=== PATIENT | male | born 1950 | race African-American/Black ===

== ENCOUNTER 2020-04-27 13:36 | Inpatient (IN) | payer MEDICARE, MEDICAID ==
--- NOTE | 2020-04-27 14:04 | ED ---
General Adult HPI - General Chief complaint: Extremity Problem,Nontraumatic Stated complaint: Leg pain Time Seen by Provider: 04/27/20 13:49 Source: patient Mode of arrival: ambulatory Limitations: no limitations - History of Present Illness Initial comments: Dictation was produced using fitaborate dictation software. please excuse any grammatical, word or spelling errors. This patient was cared for during a federal and state declared state of formerly [facility] secondary to Covid 19 Chief Complaint: 69-year-old male presents today with bilateral lower extremity pain. History of Present Illness: 69-year-old male presents today with several days of bilateral lower extremity pain. Patient states that it feels warm and causing a burning-like sensation. Patient states that his symptoms progressively R worsening. He states he noted some blisters located to the right lateral portion of his lower extremities. Patient denies any history of lower extremity cellulitis. No fever, chills or night sweats. Patient states he recently had dental work. The patient has a shortness of breath. Denies any cardiac disease. Patient denies any numbness and paresthesias to his leg. Does state that his lower legs bilaterally hurt. States his right leg appears to be worse in the left. He does note swelling. The ROS documented in this emergency department record has been reviewed and confirmed by me. Those systems with pertinent positive or negative responses have been documented in the HPI. All other systems are other negative and/or noncontributory. PHYSICAL EXAM: General Impression: Alert and oriented x3, not in acute distress HEENT: Normocephalic atraumatic, extra-ocular movements intact, pupils equal and reactive to light bilaterally, mucous membranes moist. Cardiovascular: Heart regular rate and rhythm Chest: Able to complete full sentences, no retractions, no tachypnea Abdomen: abdomen soft, non-tender, non-distended, no organomegaly Musculoskeletal: Pulses present and equal in all extremities, 4+ pitting edema bilaterally Motor: no focal deficits noted Neurological: CN II-XII grossly intact, no focal motor or sensory deficits noted Skin: Patient has ruptured blisters to the right lateral portion of the right lo wer leg, leg does not appear to be warm to touch however doesn't list pain with palpation Psych: Normal affect and mood ED course: 69-year-old male presents with several days of bilateral lower extre mities symptoms. Vital signs upon arrival are within acceptable limits. EKG interpretation: Ventricular rate 69, normal sinus rhythm,. 156, QRS 88, QTC 420. No GA prolongation, no QTC prolongation, no ST or T-wave changes noted. No EKG for comparison Overall, this EKG is nonspecific Laboratory evaluation obtained. CBC unremarkable. Metabolic panel is negative. Brain natruretic peptide is negative. Tibia-fibula x-ray shows soft tissue swelling. Venous Doppler study is unremarkable. Patient was reevaluated bedside at 4 PM. Patient started making very paranoid comments saying that he wanted to call the police and have them involved because he had dental work and doesn't want to be programmed. Clinical presentation consistent concerning for acute psychiatric illness. Patient medically cleared for EPS evaluation. Laboratory evaluation obtained. CBC unremarkable. Metabolic panel is negative. Clinical presentation is unclear however there does seem to be features concerning for lower extremity cellulitis. Patient given dose of Keflex. His legs were wrapped with Last wrap. This is likely lymphedema. Patient is instructed by EPS and recommended inpatient admission. Certification was completed. - Related Data Home Medications Medication Instructions Recorded Confirmed No Known Home Medications 04/27/20 04/27/20 Allergies Allergy/AdvReac Type Severity Reaction Status Date / Time No Known Allergies Allergy Verified 04/27/20 16:29 Review of Systems ROS Statement: Those systems with pertinent positive or pertinent negative responses have been documented in the HPI. ROS Other: All systems not noted in ROS Statement are negative. Past Medical History Past Medical History: Hyperlipidemia, Hypertension History of Any Multi-Drug Resistant Organisms: None Reported Past Surgical History: No Surgical Hx Reported Past Psychological History: No Psychological Hx Reported Smoking Status: Current every day smoker Past Alcohol Use History: Occasional Past Drug Use History: Marijuana General Exam Limitations: no limitations Course Vital Signs 04/27/20 13:38 Temperature 97.9 F Pulse Rate 77 Respiratory 20 Rate Blood Pressure 187/94 O2 Sat by Pulse 100 Oximetry Medical Decision Making - Lab Data Result diagrams: 04/27/20 14:28 04/27/20 14:28 Lab Results 04/27/20 04/27/20 04/27/20 Range/Units 14:28 14:28 14:28 WBC 5.9 (3.8-10.6) k/uL RBC 4.62 (4.30-5.90) m/uL Hgb 14.1 (13.0-17.5) gm/dL Hct 42.3 (39.0-53.0) % MCV 91.7 (80.0-100.0) fL MCH 30.5 (25.0-35.0) pg MCHC 33.3 (31.0-37.0) g/dL RDW 13.7 (11.5-15.5) % Plt Count 261 (150-450) k/uL MPV 7.7 Neutrophils % 60 % Lymphocytes % 29 % Monocytes % 5 % Eosinophils % 3 % Basophils % 1 % Neutrophils # 3.5 (1.3-7.7) k/uL Lymphocytes # 1.7 (1.0-4.8) k/uL Monocytes # 0.3 (0-1.0) k/uL Eosinophils # 0.2 (0-0.7) k/uL Basophils # 0.1 (0-0.2) k/uL Sodium 136 L (137-145) mmol/L Potassium 4.6 (3.5-5.1) mmol/L Chloride 105 (98-107) mmol/L Carbon Dioxide 24 (22-30) mmol/L Anion Gap 7 mmol/L BUN 23 H (9-20) mg/dL Creatinine 0.78 (0.66-1.25) mg/dL Est GFR (CKD-EPI)AfAm >90 (>60 ml/min/1.73 sqM) Est GFR (CKD-EPI)NonAf >90 (>60 ml/min/1.73 sqM) Glucose 133 H (74-99) mg/dL Calcium 9.1 (8.4-10.2) mg/dL Troponin I <0.012 (0.000-0.034) ng/mL NT-Pro-B Natriuret Pep pg/mL 04/27/20 Range/Units 14:28 WBC (3.8-10.6) k/uL RBC (4.30-5.90) m/uL Hgb (13.0-17.5) gm/dL Hct (39.0-53.0) % MCV (80.0-100.0) fL MCH (25.0-35.0) pg MCHC (31.0-37.0) g/dL RDW (11.5-15.5) % Plt Count (150-450) k/uL MPV Neutrophils % % Lymphocytes % % Monocytes % % Eosinophils % % Basophils % % Neutrophils # (1.3-7.7) k/uL Lymphocytes # (1.0-4.8) k/uL Monocytes # (0-1.0) k/uL Eosinophils # (0-0.7) k/uL Basophils # (0-0.2) k/uL Sodium (137-145) mmol/L Potassium (3.5-5.1) mmol/L Chloride (98-107) mmol/L Carbon Dioxide (22-30) mmol/L Anion Gap mmol/L BUN (9-20) mg/dL Creatinine (0.66-1.25) mg/dL Est GFR (CKD-EPI)AfAm (>60 ml/min/1.73 sqM) Est GFR (CKD-EPI)NonAf (>60 ml/min/1.73 sqM) Glucose (74-99) mg/dL Calcium (8.4-10.2) mg/dL Troponin I (0.000-0.034) ng/mL NT-Pro-B Natriuret Pep 167 pg/mL Disposition Clinical Impression: Paranoia, Swelling of both lower extremities Disposition: ADMITTED IP TO THIS [facility] Condition: Fair Referrals: None,Stated [Primary Care Provider] - 1-2 days Decision Time: 20:18
[2020-04-27 14:43] LABS: Basophils # (A) 0.1 k/uL (0-0.2); Basophils % (A) 1 %; Eosinophils # (A) 0.2 k/uL (0-0.7); Eosinophils % (A) 3 %; HCT 42.3 % (39.0-53.0); HGB 14.1 gm/dL (13.0-17.5); Lymphocytes # (A) 1.7 k/uL (1.0-4.8); Lymphocytes % (A) 29 %; MCH 30.5 pg (25.0-35.0); MCHC 33.3 g/dL (31.0-37.0); MCV 91.7 fL (80.0-100.0); Mean Platelet Volume 7.7; Monocytes # (A) 0.3 k/uL (0-1.0); Monocytes % (A) 5 %; Neutrophils # (A) 3.5 k/uL (1.3-7.7); Neutrophils % (A) 60 %; Platelet Count 261 k/uL (150-450); RBC 4.62 m/uL (4.30-5.90); RDW 13.7 % (11.5-15.5); WBC 5.9 k/uL (3.8-10.6)
[2020-04-27 14:54] LABS: African American GFR (CKD) >90 (>60 ml/min/1.73 sqM); Anion Gap 7 mmol/L; Blood Urea Nitrogen 23 mg/dL (9-20); Calcium 9.1 mg/dL (8.4-10.2); Carbon Dioxide 24 mmol/L (22-30); Chloride 105 mmol/L (98-107); Glucose 133 mg/dL (74-99); Non-African American GFR(CKD) >90 (>60 ml/min/1.73 sqM); Sodium 136 mmol/L (137-145)
[2020-04-27 14:56] LABS: Potassium 4.6 mmol/L (3.5-5.1)
--- NOTE | 2020-04-27 15:10 | XR ---
EXAMINATION TYPE: XR tibia fibula bilateral DATE OF EXAM: 04/27/2020 COMPARISON: NONE HISTORY: Leg swelling TECHNIQUE: 8 views FINDINGS: There is some deformity of the posterior malleolus of the right ankle consistent with an ol d injury. I see no acute fracture nor dislocation. There is soft tissue swelling around both lower le gs. There is some deformity of the right calcaneus that could relate to an old fracture. The knee dayron nts appear intact. IMPRESSION: Soft tissue swelling. No fracture seen.
--- NOTE | 2020-04-27 15:49 | US ---
EXAMINATION TYPE: US venous doppler duplex LE BI DATE OF EXAM: 04/27/2020 3:28 PM COMPARISON: NONE CLINICAL HISTORY: bilateral leg swelling. Bilateral leg swelling/ no known prior DVT SIDE PERFORMED: Bilateral TECHNIQUE: The lower extremity deep venous system is examined utilizing real time linear array sonog ronald with graded compression, doppler sonography and color-flow sonography. VESSELS IMAGED: Common Femoral Vein Deep Femoral Vein Greater Saphenous Vein * Femoral Vein Popliteal Vein Small Saphenous Vein * Proximal Calf Veins (* superficial vessels) Right Leg: Negative for DVT Left Leg: Negative for DVT IMPRESSION: No evidence of deep vein thrombosis in the legs.
[2020-04-27] MEDS ORDERED: CEPHALEXIN 500 MG CAP PO STA (16:16)
[2020-04-27] MEDS ORDERED: METOPROLOL TARTRATE 25 MG TAB PO STA (20:57)
[2020-04-28] MEDS ORDERED: LORazepam 1 MG TAB PO PRN (00:36)
[2020-04-28] MEDS ORDERED: ACETAMINOPHEN TAB 325 MG TAB PO PRN (00:36)
[2020-04-28] MEDS ORDERED: MAG HYDROX/AL HYDROX/SIMETH 30 ML CUP PO PRN (00:36)
[2020-04-28] MEDS ORDERED: HALOPERIDOL LACTATE 5 MG/ML 1 ML VIAL IM PRN (00:42)
[2020-04-28] MEDS ORDERED: LORazepam 2 MG/ML INJ IM PRN (00:46)
[2020-04-28] MEDS ORDERED: MAGNESIUM HYDROXIDE 2,400 MG/10 ML CUP PO PRN (02:00)
[2020-04-28] MEDS ORDERED: HEPARIN SODIUM,PORCINE 5,000 UNIT/ML 1 ML VIAL SQ SCH (02:00)
--- NOTE | 2020-04-28 02:00 | P.MDCNMH ---
History of Present Illness H&P Date: 04/28/20 Chief Complaint: bilateral leg edema, hypertension 69 year old male with hypertension patient comes in for evaluation of bilateral leg swelling, and right leg blistering he is not clear about how long has this been going on, he kept telling me how the FBI did some dental work trying to program something in him that he is refusing to get, and that police is after him now. he is really not clear with what he is saying , and when I ask for clarification, he requested to be left alone to rest. then he told me about something unique regarding his chest, and that has to do with the community, but he is not ashamed. again when i asked for clarification , he got upset. and asked to be left alone. 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 in the ED, cellulitis was suspected, otherwise venous doppler US did not show any acute DVT in bilateral legs. Review of Systems ROS unobtainable: due to mental status Past Medical History Past Medical History: Hyperlipidemia, Hypertension History of Any Multi-Drug Resistant Organisms: None Reported Past Surgical History: No Surgical Hx Reported Past Psychological History: No Psychological Hx Reported Smoking Status: Current every day smoker Past Alcohol Use History: Occasional Past Drug Use History: Marijuana - Past Family History family Family Medical History: Unable to Obtain Medications and Allergies Home Medications Medication Instructions Recorded Confirmed Type No Known Home Medications 04/27/20 04/27/20 History Allergies Allergy/AdvReac Type Severity Reaction Status Date / Time No Known Allergies Allergy Verified 04/27/20 16:29 Physical Exam Vitals: Vital Signs Temp Pulse Resp BP Pulse Ox 04/27/20 22:20 155/73 04/27/20 22:00 163/82 04/27/20 21:59 168/78 04/27/20 20:55 198/101 04/27/20 13:38 97.9 F 77 20 187/94 100 Intake and Output 04/27/20 04/27/20 04/28/20 14:59 22:59 06:59 Other: Weight 90.718 kg limited exam , patient did not cooperate Constitutional: No acute distress Eyes: Anicteric sclerae,bloodshot eyes Pupils equal round reactive to light ENMT: NC/AT Neck: deferred Lungs: Clear to auscultation Clear to percussion Normal respiratory effort, no accessory muscle use Cardiovascular: Heart regular in rate and rhythm, No murmurs, gallops, or rubs bilateral leg edema Abdominal: deferred Skin: Normal temperature, tone, texture, turgor No induration No subcutaneous nodules Extremities: No digital cyanosis No clubbing Pedal pulses intact and symmetrical Radial pulses intact and symmetrical right leg, swelling non pitting, tender to palpation , warm to the touch , with open blisters Psychiatric: Alert and oriented to person, place and time paranoid Neuro Muscles Strength 5/5 in all 4 extremities Sensation to light touch grossly present throughout Cranial nerves II-XII grossly intact No focal sensory deficits Lymphatics: no palpable cervical or supraclavicular , or inguinal lymph nodes Cranial Nerve Examination - Cranial Nerves Cranial Nerve II- Optic: Intact Cranial Nerve III- Oculomotor: Intact Cranial Nerve IV- Trochlear: Intact Cranial Nerve V- Trigeminal: Intact Cranial Nerve - Abducens: Intact Cranial Nerve VII- Facial: Intact Cranial Nerve VIII- Auditory: Intact Cranial Nerve IX- Glossopharyngeal: Intact Cranial Nerve X- Vagus: Intact Cranial Nerve XI- Accessory: Intact Cranial Nerve XII- Hypoglossal: Intact Results CBC & Chem 7: 04/27/20 14:28 04/27/20 14:28 Labs: Abnormal Lab Results - Last 24 Hours (Table) 04/27/20 Range/Units 14:28 Sodium 136 L (137-145) mmol/L BUN 23 H (9-20) mg/dL Glucose 133 H (74-99) mg/dL Assessment and Plan Assessment: cellulitis hypertensive urgency bloodshot eyes bactrim DS bid for 7 days venous doppler us of the legs did not show any acute DVT xray of the right leg showed no acute fractures start norvasc and HCTZ clonidine PRN for systolic above 180 compression stocking dvt PPx heparin sc tid paranoid delusions management per psych labs reviewed Thank you for allowing us to participate in the care of this patient. We will follow peripherally. Do not hesitate to contact us with questions. Someone can be reached from the [facility] [place] 2[place] hospitalist group at all hours of the day at [phone].
[2020-04-28] MEDS ORDERED: ARTIFICIAL TEARS-HYPROMELLOSE DROPS 15 ML BTL BOTH EYES PRN (03:00)
[2020-04-28] MEDS: SULFAMETHOX-TMP 800-160MG 1 EACH TAB PO SCH ×3 (08:25→20:44)
[2020-04-28] MEDS: amLODIPine 5 MG TAB PO SCH (08:26)
[2020-04-28] MEDS: NICOTINE 14MG/24HR PATCH TRANSDERM SCH (08:26)
[2020-04-28] MEDS: hydroCHLOROthiazide 25 MG TAB PO SCH (08:26)
[2020-04-28] MEDS ORDERED: cloNIDine HCL 0.2 MG TAB PO PRN (09:00)
--- NOTE | 2020-04-28 11:15 | HP ---
DATE OF SERVICE: 04/28/2020 HISTORY AND PHYSICAL IDENTIFYING DATA: The patient is a 69-year-old male. He lives in a house in the community that apparently is under reconstruction. He presented to the ED for evaluation. CHIEF COMPLAINT: The patient had physical complaints, some of which he related to "micro programming." He was disorganized and expressed delusional thoughts. HISTORY OF PRESENTING ILLNESS: The patient was the sole source of information for the history, it was very difficult to get a clear history from the patient. He said that he was having leg swelling and that his right leg broke out into some kind of blister. He said then his body got very hot. He also related to some of physical symptoms to having some recent dental work done. He made comments that he believed much of this was related to "micro programming." He did not describe what he thought that meant though suggested that he believes people are out to get him. Again, he did not provide any details. He mentioned that recently he had seen a doctor who he said "played with me and my family." Throughout the interview he made references to things about "technology", though it was not clear what his references were. He described that he had been out of the area and had gone down to the [facility] apparently to visit a family member. He said he lived for some period of time in a skilled nursing there. He stated that he was in [facility] much of his adult life for murder. He gave a description of some situation where he was feeling threatened in the midst of a social situation. He said he left snf 4 years ago and has been on parole. He said he just got off parole November 14, 2019. He notes that currently he stated he has been living at [address] [place] [address] in [place]. He said people are doing re-working of the house and he is living there to watch over the house. He says he has keys to the house. It is noteworthy that looking at [employer] maps, there is a picture of the house. In the picture it does appear that there are some windows boarded up and the house may be under some reconstruction. Also in the picture are two people on a porch that do appear to be worker's. In the front yard there is a bench and it appears in fact that the patient may be sitting on that bench. When I asked the patient who the power press tender was and whether we could get in touch with the power press tender, he was somewhat resistant to that idea. He then made a comment that he had made some efforts to contact two different housing authorities and was hopeful that during this hospitalization he could get assistance with housing. The patient states that he has not had a prior psychiatric hospitalization. He is not on any psychotropic medications. He made some reference to the fact that he was never on any psychiatric medications during his time in sn[place], though at some point after he got out there was a suggestion of his getting on medications, which he said he declined. He said, "I never needed medications in snf, so why would I need them now." The patient states that he has been drinking some "hemp protein" drink, though did not provide any more details. He states that he drinks a small amount of alcohol and apparently will buy single shot drinks from grocery stores. He tended to minimize how much of that he actually uses. He did not identify any other abusive substances. He is admitted for further evaluation. SUBSTANCE USE HISTORY: As above. PAST MEDICAL HISTORY: Patient reported no significant or chronic general health complaints. He did not indicate he is taking any prescribed medications. It is noteworthy that he has been running a high systolic blood pressure with his pressure this morning being 145/81 at 8:28 a.m. FAMILY AND SOCIAL HISTORY: The patient states that he is disconnected from family. I encouraged the patient to have us make an effort to contact some family member who might know him, though he was very reluctant to consider that. He suggested that all of his family are against him. He made comments about having done some college courses, though it was not clear what the specifics of that were. To some extent it seemed to relate to the idea of "technology." MENTAL STATUS EXAM: Patient sat with some restlessness. He gave fair eye contact. He answered questions with brief responses. More often than not he tended to ramble in a somewhat tangential manner. He talked about a range of issues. At times it was difficult to follow his train of thought. His affect was a little constricted though he smiled on and off through the interview and had a friendly manner. His mood was reserved though not clearly down or depressed. He did not appear to be significantly distressed. He appears to have paranoid delusions talking about being "micro programmed." He voiced no thoughts of harm to self or others. He did not make an effort to answer formal cognitive questions. He gave some specific information that was consistent with what was documented in the medical record. He appeared to be oriented and alert. PHYSICAL EXAM: As per medical consultation. ASSESSMENT: This is a 69-year-old male who was diagnosed with psychosis. It is very uncertain whatever the patient's past history is, whether or not we will be able to get any documentation or corroborative information remains to be seen. The patient is expressing some fairly clear delusional thoughts about getting programmed. His living circumstances are questionable, though he seemed to accurately describe the house where he lives and where he has possessions. STRENGTHS: Include that he appears to be managing basic life issues adequately. WEAKNESSES: Includes thought disorder. DIAGNOSES: 1. Psychosis. 2. Hypertension. RECOMMENDATIONS: Patient will be admitted for comprehensive medical psychiatric and psychosocial evaluation. We will engage the patient in individual and group therapeutic activities. I will start the patient on Zyprexa 15 mg at bedtime. I briefly reviewed medication issues with the patient. He did not seem to be too engaged in that conversation, so I kept it limited. The patient was quite interested in the idea of our working with him on housing. We will focus on stabilization and discharge planning. KENDRICK / MAXIMEN: [id number] / JAKI
[2020-04-28] MEDS: BACITRACIN OINT 1 EACH PACKET TOPICAL SCH (19:07)
[2020-04-28] MEDS: OLANZapine 5 MG TAB PO SCH (20:44)
[2020-04-28] MEDS: RIVAROXABAN 10 MG TAB PO SCH (20:45)
[2020-04-29 07:39] LABS: Basophils % (A) 1 %; Eosinophils # (A) 0.2 k/uL (0-0.7); Eosinophils % (A) 4 %; HCT 43.3 % (39.0-53.0); HGB 14.3 gm/dL (13.0-17.5); Lymphocytes % (A) 40 %; MCH 30.5 pg (25.0-35.0); MCV 92.4 fL (80.0-100.0); Mean Platelet Volume 7.7; Monocytes # (A) 0.3 k/uL (0-1.0); Monocytes % (A) 6 %; Neutrophils # (A) 2.3 k/uL (1.3-7.7); Neutrophils % (A) 46 %; Platelet Count 291 k/uL (150-450); RBC 4.69 m/uL (4.30-5.90); RDW 13.5 % (11.5-15.5)
[2020-04-29 07:57] LABS: Albumin 3.6 g/dL (3.5-5.0); Calcium 9.7 mg/dL (8.4-10.2); Potassium 4.6 mmol/L (3.5-5.1); Total Bilirubin 0.7 mg/dL (0.2-1.3); Total Protein 6.9 g/dL (6.3-8.2)
[2020-04-29] MEDS: hydroCHLOROthiazide 25 MG TAB PO SCH (08:31)
[2020-04-29] MEDS: amLODIPine 5 MG TAB PO SCH (08:31)
[2020-04-29] MEDS: BACITRACIN OINT 1 EACH PACKET TOPICAL SCH (08:31)
[2020-04-29] MEDS: SULFAMETHOX-TMP 800-160MG 1 EACH TAB PO SCH ×2 (08:31→20:42)
[2020-04-29] MEDS: NICOTINE 14MG/24HR PATCH TRANSDERM SCH (08:32)
[2020-04-29] MEDS: RIVAROXABAN 10 MG TAB PO SCH (08:32)
--- NOTE | 2020-04-29 13:46 | P.PN ---
Progress Note - Text Progress Note Date: 04/29/20 Clinical Problems: Unspecified psychotic disorder, cellulitis, hypertension Interim history: I reviewed the medical record, interviewed the patient and discuss his treatment and treatment plan during team meeting. He is a 69-year-old -[place] male admitted to the psychiatric unit involuntarily with a history of disorganized thinking and delusional thoughts. Apparently, he presented to the ED with complaints of bilateral lower extremity pain. During the medical evaluation he appeared paranoid and talked about calling the police to have them involved because he had dental work and "doesn't want to be programmed." He told the EPS nurse and is concerned about micor and macro pro gramming. He thinks that people can use this program to manipulate people when they had this science of understanding. He told the EPS nurse that he wants to give a tooth to the FBI for samples. He alleged that he was admitted to this psychiatric unit "many years ago" and was prescribed psychotropic medications when he was in jail I had difficulty getting a coherent history as she jumped from topic to topic. He talked about dental procedures and dental issues, leg pain, leg swelling and ulcers on legs. He perseverated about his long jail sentence and how he paid his debt to society. He did not talk about programming, mind control, thought broadcasting, or thought insertion. He denied experiencing auditory and visual or olfactory hallucinations. Gave conflicting information about his substance use history and talked about resisting smoking marijuana and resisting using alcohol. He has not provided a urine sample for UDS. His BAT in the ER was 0. Medical consultation appreciated. Mental status exam: He presented as a casually groomed elderly -[place] male who was pleasant on approach. He made eye contact and appeared to attend to interview. He had psychomotor slowing and a short based slow gait. He had bilateral 2+ pitting edema as well as multiple lesions in various stages of healing. His speech was spontaneous with slightly dysarthric but normal volume. His affect was anxious but appropriate. He denied suicidal ideation, wishes or homicidal ideation. He expresses feelings of helplessness regarding his medical problems and his difficulty with obtaining proper medical care. He ruminated about his past legal problems and difficulties with his health. He did not express ideas reference. He appeared to have overvalued ideas but it wa sn't clear whether they were paranoid ideation or delusional thoughts. His thinking was concrete and not fully logical or goal directed. He denied hallucinations and did not appear to be responding to internal stimuli. Assessment: He is an unusual presentation was concrete and somewhat disorganized thinking and overvalued ideas with perseveration about themes suggestive of paranoia or delusional beliefs. His history is significant for a 38 year jail sentence. Plan: Continue with inpatient treatment. Safety precautions. Continue Zyprexa 50 mg at bedtime, Norvasc 5 mg daily, Catapres 0.2 mg 4 times a day when necessary for elevated blood pressure, Clozaril to 10 mg daily and Bactrim DS 3 times a day. Antiembolism stockings as recommended by the cisco consultant hog raiser. Encourage participation in therapeutic groups and activities. Evaluate clinical status response to treatment on a daily basis.
[2020-04-29 16:27] LABS: Hemoglobin A1C 7.1 % (4.0-6.0)
[2020-04-29] MEDS: OLANZapine 5 MG TAB PO SCH (20:42)
[2020-04-30] MEDS: SULFAMETHOX-TMP 800-160MG 1 EACH TAB PO SCH ×2 (08:21→20:04)
[2020-04-30] MEDS: amLODIPine 5 MG TAB PO SCH (08:21)
[2020-04-30] MEDS: RIVAROXABAN 10 MG TAB PO SCH (08:21)
[2020-04-30] MEDS: hydroCHLOROthiazide 25 MG TAB PO SCH (08:21)
[2020-04-30] MEDS: BACITRACIN OINT 1 EACH PACKET TOPICAL SCH (08:22)
--- NOTE | 2020-04-30 11:31 | P.PN ---
Progress Note - Text Progress Note Date: 04/30/20 Clinical Problems: Unspecified psychotic disorder, cellulitis, hypertension Interim history: I reviewed the medical record, interviewed the patient and discuss his treatment and treatment plan during team meeting. His primary concern is his physical health. He is wearing the compression stockings and mentioned that the "swelling" of his legs has decreased. I explained that the shear tender prescribed Bactrim for cellulitis. He asked me to explain cellulitis and how he may have developed a skin infection. When I mentioned that cellulitis can develop following a skin injury and people who have diabetes he replied "I have diabetes". We talked about the results of his hemoglobin A1c. During the interview she frequently referred to "people messing with me" suggesting a chronic paranoia. He also appeared to have difficulty with abstract concepts. Mental status exam: He presented as a casually groomed elderly -[place]ian male who was pleasant on approach. He made eye contact and appeared to attend to interview. He had psychomotor slowing and a short based slow gait. He was wearing OR[place]O hose. His speech was spontaneous with slightly dysarthric but normal volume. His affect was anxious but appropriate. He denied suicidal ideation, wishes or homicidal ideation. He did not express feelings of hopelessness, helplessness or worthlessness. He ruminated about his past legal problems and with people "messing with me." He did not express ideas reference. He appeared to have overvalued paranoid concerns but it wasn't clear whether they were paranoid ideation or delusional thoughts. His thinking was concrete and not fully logical or goal directed. He denied hallucinations and did not appear to be responding to internal stimuli. Assessment: He appears less distressed than on admission. His thinking appears less disorganized remains guarded and suspicious. Plan: Continue with inpatient treatment. Safety precautions. Continue Zyprexa 15 mg at bedtime, Norvasc 5 mg daily, Catapres 0.2 mg 4 times a day when necessary for elevated blood pressure, Xarelto 10 mg daily and Bactrim DS 3 times a day. Antiembolism stockings as recommended by the systems consultant shear tender. Encourage participation in therapeutic groups and activities. Evaluate clinical status response to treatment on a daily basis.
[2020-04-30 12:31] LABS: Glucose,Whole Blood 96 mg/dL (75-99)
--- NOTE | 2020-04-30 16:47 | P.CON ---
Consult Note - . Consult date: 04/30/20 Assessment/Plan:: Wound care consultation: Reason for consult: Blister lesions right lower extremity. This 69-year-old gentleman was admitted complaining of blistering lesions and swelling of the lower extremities. He has some delusional issues that make the timing and circumstances difficult to ascertain. He is not a diabetic. He is a smoker. He denies current lower extremity discomfort. Physical examination reveals a pleasant alert 69-year-old -[place] gentleman in no distress. Lower extremities show very mild swelling. He has bounding bilateral pedal pulses. On the anterior and lateral aspect of the right lower leg he has multiple lesions 2 - 3 cm in dimension. These are somewhat unstageable because of the dried skin on the surface. The appear likely to be epidermal in nature. There may be some areas of penetration of the dermis but this is difficult to tell at this time. Impression: Nonspecific blistered lesions currently dried and healing. Recommendation: At this time I would simply treat these lesions with Silvadene and cover with simple gauze sponges. The dressings can be changed daily after cleansing of the lesions. The appearance would suggest that these should simply heal with this treatment plan. If they do not continue to heal as expected I would be happy to see him in my office. Also, [place] hose could be used for control of swelling if it develops.
[2020-04-30 17:37] LABS: Glucose,Whole Blood 111 mg/dL (75-99)
[2020-04-30] MEDS: OLANZapine 5 MG TAB PO SCH (20:04)
[2020-04-30 20:23] LABS: Glucose,Whole Blood 134 mg/dL (75-99)
[2020-05-01 06:55] VITALS: RESP 16
[2020-05-01 07:51] LABS: Glucose,Whole Blood 136 mg/dL (75-99)
[2020-05-01] MEDS: RIVAROXABAN 10 MG TAB PO SCH (08:23)
[2020-05-01] MEDS: hydroCHLOROthiazide 25 MG TAB PO SCH (08:23)
[2020-05-01] MEDS: amLODIPine 5 MG TAB PO SCH (08:23)
[2020-05-01] MEDS: BACITRACIN OINT 1 EACH PACKET TOPICAL SCH (08:23)
[2020-05-01] MEDS: SULFAMETHOX-TMP 800-160MG 1 EACH TAB PO SCH ×2 (08:23→20:46)
--- NOTE | 2020-05-01 11:18 | P.PN ---
Progress Note - Text Progress Note Date: 05/01/20 Clinical Problems: Unspecified psychotic disorder, cellulitis, hypertension Interim history: I reviewed the medical record, interviewed the patient and discuss his treatment and treatment plan during team meeting. He insisted that I review his bank statement. He complained about a fraudulent charge by [employer] for a fraudulent trip to [place]. He insisted that "we" contact the FBI to investigate discharge. I noticed on the bank statement there is also a [employer] charge to [place]. He alleged that he went to [place] in January to visit the [facility] of the [facility]. However, the train only took him to [place]. He apparently lived in the train station for a period of time until he returned to [place]. (There is a [facility] in [facility]). He requested to remain in the hospital until after year. He remains concerned about his physical health and is compliant with both psychiatric and medical care. He does not attend therapeutic groups or activities. He seldom socializes with staff or peers. Wound care consult appreciated. Fasting blood glucoses have been elevated Mental status exam: He presented as a casually groomed elderly -Danish male who was pleasant on approach. He made eye contact and appeared to attend to interview. He had psychomotor slowing and a short based slow gait. He was not wearing the [place]O hose; he had 1+ pitting edema bilaterally. His speech was spontaneous with slightly dysarthric but normal volume. His affect was anxious but appropriate. He denied suicidal ideation, wishes or homicidal ideation. He did not express feelings of hopelessness, helplessness or worthlessness. He was less ruminative about his past legal problems or people messing with him. He did not express ideas reference. He remains paranoid. His thinking was concrete but logical or goal directed. He denied hallucinations and did not appear to be responding to internal stimuli. Assessment: He appears less distressed than on admission. His thinking appears less disorganized. Plan: Continue with inpatient treatment. Safety precautions. Continue Zyprexa 15 mg at bedtime, Norvasc 5 mg daily, Catapres 0.2 mg 4 times a day when necessary for elevated blood pressure, Xarelto 10 mg daily and Bactrim DS 3 times a day. Antiembolism stockings as recommended by the identity management consultant diversified crops farmworker and recommendations care nurse for management of his blisters. Encourage participation in therapeutic groups and activities. Evaluate clinical status response to treatment on a daily basis.
[2020-05-01 12:50] LABS: Glucose,Whole Blood 77 mg/dL (75-99)
[2020-05-01 14:37] VITALS: BMI 32.1
[2020-05-01 17:21] LABS: Glucose,Whole Blood 102 mg/dL (75-99)
[2020-05-01] MEDS: OLANZapine 5 MG TAB PO SCH (20:45)
[2020-05-02 07:51] LABS: Glucose,Whole Blood 143 mg/dL (75-99)
[2020-05-02] MEDS: RIVAROXABAN 10 MG TAB PO SCH (08:31)
[2020-05-02] MEDS: SULFAMETHOX-TMP 800-160MG 1 EACH TAB PO SCH (08:31)
[2020-05-02] MEDS: hydroCHLOROthiazide 25 MG TAB PO SCH (08:32)
[2020-05-02] MEDS: BACITRACIN OINT 1 EACH PACKET TOPICAL SCH (08:32)
[2020-05-02] MEDS: amLODIPine 5 MG TAB PO SCH (08:32)
--- NOTE | 2020-05-02 11:41 | P.DS ---
Providers Date of admission: 04/27/20 22:58 Attending physician: Ezio Garcia MD Consults: 04/28/20 00:36 Consult Physician Routine Consulting Provider: Mable Zayas Consult Reason/Comments: h and p Do you want consulting provider notified?: Yes Primary care physician: Stated None - Discharge Diagnosis(es) (1) Schizophrenia, paranoid, chronic Current Visit: Yes Status: Chronic Priority: Medium (2) Cellulitis and abscess of lower extremity Current Visit: Yes Status: Acute Priority: Medium (3) Hypertension Current Visit: Yes Status: Chronic Priority: High (4) Hyperglycemia Current Visit: Yes Status: Chronic Priority: Low (5) Swelling of both lower extremities Current Visit: Yes Status: Chronic Priority: Medium Hospital Course: HISTORY: He is a 69-year-old -[place] Citizen male admitted to the psychiatric unit involuntarily with a history of disorganized thinking and delusional thoughts. Apparently, he presented to the ED with complaints of bilateral lower extremity pain. During the medical evaluation he appeared paranoid and talked about calling the police to have them involved because he had dental work and "doesn't want to be programmed." He told the EPS nurse and is concerned about micro and macro programming. He thinks that people can use this program to manipulate people when they had this science of understanding. He told the EPS nurse that he wants to give a tooth to the FBI for samples. He has a history of mental illness and prior psychiatric hospitalizations. He also received psychiatric [facility]. His legal history is significant for 3 years incarceration. He was released from parole for 8 months ago. He receives Social Security but does not have stable housing. HOSPITAL COURSE: We admitted him to psychiatric unit voluntarily under the care of this web content writer. We provided a competence a biopsychosocial assessment. The medical secretary receptionist completed initial physical exam and medical history and diagnosis cellulitis, hypertension urgency and "blood shot eyes". He also had 2+ pitting edema bilaterally with open lesions on his right leg. The organizational development consultant recommended a 7 day course of Bactrim DS for treatment of the cellulitis and prescribed Norvasc 5 mg daily and hydrochlorothiazide 25 mg daily for the treatment of hypertension in addition to clonidine 0.2 mg 4 times a day when necessary for articulation and blood pressure. His systolic blood pressures range from 129 to 152 during this hospitalization. The wound care consultation recommended Silvadene and simple, sponges as well as the use of [place] hose for the bilateral edema. We treated the patient's paranoia with Zyprexa 15 mg at bedtime. He was paranoid throughout the hospitalization. He posed no management problem and had no episodes of behavioral dyscontrol. He seldom attended therapeutic groups and activities and spent most of time in his room. The social service liaison confirmed that he has initiated an application with [employer] and schedule follow-up appointments with [facility] and primary care. MENTAL STATUS ON DISCHARGE: At time of discharge she presented as a casually groomed elderly after [place] Citizen male who was pleasant on approach. He made eye contact and attended to interview. He had +1 pitting edema bilaterally and lesions in various stages of healing on his right leg. He had a blunted facial expression. He was alert and oriented to person, place and time. He has psychomotor retardation but no abnormal involuntary movements. His gait was slow but steady. His speech was spontaneous with normal rate and rhythm. He was slightly dysarthric. His affect was blunted but stable and appropriate. He denied suicidal ideation, wishes or homicidal ideation. He denied feeling hopeless, helpless or worthless. He ruminated his chronic paranoid beliefs infrequently talked about the FBI and people "messing with my mind." Express pa ranoid ideation and disjointed delusional beliefs. His thinking was concrete but his associations were coherent, logical and goal directed. He denied hallucinations did not appear to be responding to internal stimuli. DISPOSITION: Return to his former address. He has follow-up appointments at [facility] on 05/07/2020 and with primary care at 05/10/2020. His discharge medications include olanzapine 15 mg at bedtime. Patient Condition at Discharge: Stable Plan - Discharge Summary New Discharge Prescriptions: New Sulfamethox-Tmp 800-160Mg [Bactrim DS 800-160 mg] 1 each PO BID #6 tab hydroCHLOROthiazide [Hydrodiuril] 25 mg PO DAILY #30 tab amLODIPine [Norvasc] 5 mg PO DAILY #30 tab Rivaroxaban [Xarelto] 10 mg PO DAILY #30 tab OLANZapine [ZyPREXA] 15 mg PO HS #30 tablet Discharge Medication List OLANZapine [ZyPREXA] 15 mg PO HS #30 tablet 05/02/20 [Rx] Rivaroxaban [Xarelto] 10 mg PO DAILY #30 tab 05/02/20 [Rx] Sulfamethox-Tmp 800-160Mg [Bactrim DS 800-160 mg] 1 each PO BID #6 tab 05/02/20 [Rx] amLODIPine [Norvasc] 5 mg PO DAILY #30 tab 05/02/20 [Rx] hydroCHLOROthiazide [Hydrodiuril] 25 mg PO DAILY #30 tab 05/02/20 [Rx] Follow up Appointment(s)/Referral(s): [facility] [Outside] - 05/07/20 9:00 am (Intake appointment with [facility] scheduled with Yumiko in the [facility] (05/07/2019 @ 9am) ) None,Stated [Primary Care Provider] - 05/10/20 9:00 am (PCP appointment set at [facility] for 05/10/2019 at 9am ) Discharge Disposition: HOME SELF-CARE
[2020-05-02 12:43] LABS: Glucose,Whole Blood 105 mg/dL (75-99)
[2020-05-02 13:20] VITALS: BP 134/81; PULSE 92; TEMP 97.8
== END 2020-05-02 13:22 | disposition home or self-care (01) | DRG 885 ==
LOC: EC 13:36 → 3MHU 22:58
PROVIDERS: ADMIT Psychiatry & Neurology Psychiatry; ATTEND Psychiatry & Neurology Psychiatry
DX: F20.0 Paranoid schizophrenia (principal); L03.116 Cellulitis of left lower limb; L03.115 Cellulitis of right lower limb; L02.419 Cutaneous abscess of limb, unspecified; E11.65 Type 2 diabetes mellitus with hyperglycemia; E11.628 Type 2 diabetes mellitus with other skin complications; E78.5 Hyperlipidemia, unspecified; F17.210 Nicotine dependence, cigarettes, uncomplicated; I10 Essential (primary) hypertension; Z20.828 Contact with and (suspected) exposure to other viral communicable diseases; I16.0 Hypertensive urgency; Z65.3 Problems related to other legal circumstances
CPT/HCPCS: 36415; 80048; 80053; 80061; 82075; 83036; 83880; 84439; 84443; 84484; 85025; 87040; 87635; 93005; 93970; 99285

== ENCOUNTER 2020-10-22 22:16 | Emergency (ER) | payer MEDICARE, OTHER ==
[2020-10-22 22:30] VITALS: TEMP 97.8
--- NOTE | 2020-10-22 23:18 | ED ---
SOB HPI - General Chief Complaint: Shortness of Breath Stated Complaint: Leg Pain, SOB Time Seen by Provider: 10/22/20 22:17 Source: patient, EMS, RN notes reviewed, old records reviewed Mode of arrival: EMS Limitations: no limitations - History of Present Illness Initial Comments: This is a 69-year-old male DF for evaluation patient Dese for lower extremity edema. No real pain, no shortness of breath no chest pain. Patient does have history of same and states symptoms of been going on for a few months now. No prior for for physical evaluation MD Complaint: shortness of breath (He does admit to occasional shortness of b reath), anxiety -: hour(s) Severity: mild Severity scale (1-10): 2 Quality: aching Consistency: constant Improves With: nothing Worsens With: nothing Known History Of: congestive heart failure Context: recent illness Associated Symptoms: denies other symptoms Treatments Prior to Arrival: none - Related Data Home Medications Medication Instructions Recorded Confirmed Ascorbic Acid [Vitamin C with Rachel 500 mg PO DAILY 10/22/20 10/22/20 Hips] Multivitamins, Thera [Multivitamin 1 tab PO DAILY 10/22/20 10/22/20 (formulary)] Trafalgar-3 Fatty Acids/Fish Oil [Fish 1 cap PO DAILY 10/22/20 10/22/20 Oil 1,000 mg Softgel] Ubidecarenone [Co Q-10] 200 mg PO DAILY 10/22/20 10/22/20 Allergies Allergy/AdvReac Type Severity Reaction Status Date / Time No Known Allergies Allergy Verified 10/22/20 23:14 Review of Systems ROS Statement: Those systems with pertinent positive or pertinent negative responses have been documented in the HPI. ROS Other: All systems not noted in ROS Statement are negative. Past Medical History Past Medical History: Hyperlipidemia, Hypertension History of Any Multi-Drug Resistant Organisms: None Reported Past Surgical History: No Surgical Hx Reported Past Psychological History: No Psychological Hx Reported Smoking Status: Current every day smoker Past Alcohol Use History: Occasional Past Drug Use History: Marijuana - Past Family History family Family Medical History: Unable to Obtain General Exam Limitations: no limitations General appearance: alert, in no apparent distress Head exam: Present: atraumatic, normocephalic, normal inspection Eye exam: Present: normal appearance, PERRL, EOMI. Absent: scleral icterus, conjunctival injection, periorbital swelling ENT exam: Present: normal exam, mucous membranes moist Neck exam: Present: normal inspection. Absent: tenderness, meningismus, lymphadenopathy Respiratory exam: Present: normal lung sounds bilaterally. Absent: respiratory distress, wheezes, rales, rhonchi, stridor Cardiovascular Exam: Present: regular rate, normal rhythm, normal heart sounds. Absent: systolic murmur, diastolic murmur, rubs, gallop, clicks GI/Abdominal exam: Present: soft, normal bowel sounds. Absent: distended, te nderness, guarding, rebound, rigid Extremities exam: Present: normal inspection, full ROM, pedal edema, joint swelling, calf tenderness. Absent: tenderness Back exam: Present: normal inspection Neurological exam: Present: alert, oriented X3, CN II-XII intact Psychiatric exam: Present: normal affect, normal mood Skin exam: Present: warm, dry, intact, normal color. Absent: rash Course Vital Signs 10/22/20 10/23/20 10/23/20 22: 00:00 01:00 Temperature 97.8 F Pulse Rate 69 62 68 Respiratory 16 20 20 Rate Blood Pressure 186/100 183/99 191/102 O2 Sat by Pulse 100 100 100 Oximetry - Reevaluation(s) Reevaluation #1: Medical record is reviewed Patient no significant acute distress Patient symptoms improved here in the ER Patient informed of results and questions answered Medical Decision Making - Medical Decision Making 69 male DF for evaluation patient is bilateral lower extremity edema. Symptoms now for a few months, chest x-rays negative for CHF. Patient given diuresis and can be discharged home - Lab Data Result diagrams: 10/23/20 00:22 10/23/20 00:22 Lab Results 10/23/20 10/23/20 10/23/20 Range/Units 00:22 00:22 00:22 WBC 5.4 (3.8-10.6) k/uL RBC 5.01 (4.30-5.90) m/uL Hgb 14.8 (13.0-17.5) gm/dL Hct 45.9 (39.0-53.0) % MCV 91.7 (80.0-100.0) fL MCH 29.5 (25.0-35.0) pg MCHC 32.2 (31.0-37.0) g/dL RDW 14.2 (11.5-15.5) % Plt Count 231 (150-450) k/uL MPV 8.1 Neutrophils % 54 % Lymphocytes % 35 % Monocytes % 6 % Eosinophils % 2 % Basophils % 0 % Neutrophils # 2.9 (1.3-7.7) k/uL Lymphocytes # 1.9 (1.0-4.8) k/uL Monocytes # 0.3 (0-1.0) k/uL Eosinophils # 0.1 (0-0.7) k/uL Basophils # 0.0 (0-0.2) k/uL Sodium 137 (137-145) mmol/L Potassium 4.2 (3.5-5.1) mmol/L Chloride 103 (98-107) mmol/L Carbon Dioxide 30 (22-30) mmol/L Anion Gap 4 mmol/L BUN 9 (9-20) mg/dL Creatinine 0.77 (0.66-1.25) mg/dL Est GFR (CKD-EPI)AfAm >90 (>60 ml/min/1.73 sqM) Est GFR (CKD-EPI)NonAf >90 (>60 ml/min/1.73 sqM) Glucose 89 (74-99) mg/dL Calcium 9.6 (8.4-10.2) mg/dL Phosphorus 2.9 (2.5-4.5) mg/dL Magnesium 1.9 (1.6-2.3) mg/dL Total Bilirubin 0.3 (0.2-1.3) mg/dL AST 22 (17-59) U/L ALT 17 (4-49) U/L Alkaline Phosphatase 96 (38-126) U/L NT-Pro-B Natriuret Pep 118 pg/mL Total Protein 6.7 (6.3-8.2) g/dL Albumin 3.8 (3.5-5.0) g/dL - Radiology Data Radiology results: report reviewed (Chest x-rays negative for acute disease), image reviewed Disposition Clinical Impression: Bilateral leg edema, Schizophrenia, paranoid, chronic Disposition: HOME SELF-CARE Condition: Fair Instructions (If sedation given, give patient instructions): Leg Edema (ED) Is patient prescribed a controlled substance at d/c from ED?: No Referrals: None,Stated [Primary Care Provider] - 1-2 days
[2020-10-23] MEDS ORDERED: FUROSEMIDE 10 MG/ML 10 ML VIAL IV STA (00:05)
--- NOTE | 2020-10-23 00:19 | XR ---
EXAMINATION TYPE: XR chest 2V DATE OF EXAM: 10/23/2020 COMPARISON: NONE HISTORY: Weakness TECHNIQUE: 3 views FINDINGS: I see no heart failure nor confluent pneumonic infiltrate. Costophrenic angles are clear. B masoud thorax is intact. Heart size is normal. IMPRESSION: Normal chest.
[2020-10-23 00:26] VITALS: RESP 20
[2020-10-23 01:00] LABS: Basophils % (A) 0 %; Eosinophils # (A) 0.1 k/uL (0-0.7); Eosinophils % (A) 2 %; HCT 45.9 % (39.0-53.0); HGB 14.8 gm/dL (13.0-17.5); Lymphocytes # (A) 1.9 k/uL (1.0-4.8); Lymphocytes % (A) 35 %; MCH 29.5 pg (25.0-35.0); MCHC 32.2 g/dL (31.0-37.0); MCV 91.7 fL (80.0-100.0); Mean Platelet Volume 8.1; Monocytes # (A) 0.3 k/uL (0-1.0); Monocytes % (A) 6 %; Neutrophils # (A) 2.9 k/uL (1.3-7.7); Neutrophils % (A) 54 %; Platelet Count 231 k/uL (150-450); RBC 5.01 m/uL (4.30-5.90); RDW 14.2 % (11.5-15.5); WBC 5.4 k/uL (3.8-10.6)
[2020-10-23 01:01] VITALS: BP 191/102; PULSE 68
[2020-10-23 01:14] LABS: ALT 17 U/L (4-49); AST 22 U/L (17-59); African American GFR (CKD) >90 (>60 ml/min/1.73 sqM); Albumin 3.8 g/dL (3.5-5.0); Alkaline Phosphatase 96 U/L (38-126); Anion Gap 4 mmol/L; Blood Urea Nitrogen 9 mg/dL (9-20); Calcium 9.6 mg/dL (8.4-10.2); Carbon Dioxide 30 mmol/L (22-30); Chloride 103 mmol/L (98-107); Glucose 89 mg/dL (74-99); Magnesium 1.9 mg/dL (1.6-2.3); Non-African American GFR(CKD) >90 (>60 ml/min/1.73 sqM); Phosphorus 2.9 mg/dL (2.5-4.5); Potassium 4.2 mmol/L (3.5-5.1); Sodium 137 mmol/L (137-145); Total Bilirubin 0.3 mg/dL (0.2-1.3); Total Protein 6.7 g/dL (6.3-8.2)
== END 2020-10-23 02:40 | disposition home or self-care (01) ==
LOC: EC 22:16
DX: R60.0 Localized edema (principal); F20.0 Paranoid schizophrenia; R06.02 Shortness of breath; I11.0 Hypertensive heart disease with heart failure; I50.9 Heart failure, unspecified; E78.5 Hyperlipidemia, unspecified; F17.200 Nicotine dependence, unspecified, uncomplicated
CPT/HCPCS: 36415; 71046; 80053; 83735; 83880; 84100; 85025; 99285

== ENCOUNTER 2021-06-16 08:20 | Inpatient (IN) | payer MEDICARE, MEDICAID ==
--- NOTE | 2021-06-16 08:47 | ED ---
Psych HPI - General Chief Complaint: Psychiatric Symptoms Stated Complaint: EPS eval Time Seen by Provider: 06/16/21 08:33 Source: patient, RN notes reviewed Mode of arrival: ambulatory Limitations: no limitations - History of Present Illness Initial Comments: This a 70-year-old male presents emergency Department with chief complaint of needing psychiatric help. Patient states she just does not feel right in his head. He states that he is concerned he may do something. He has had some thoughts of harming himself but states he did not attempt he does admit to some alcohol use. Patient states that he was prescribed meds for psychiatric issues in the past but states he was unsure them. He does complain of anxiety and depression patient also states that he is currently homeless which is complicating his current situation. - Related Data Home Medications Medication Instructions Recorded Confirmed Ascorbic Acid [Vitamin C with Rachel 500 mg PO DAILY 10/22/20 06/16/21 Hips] Multivitamins, Thera [Multivitamin 1 tab PO DAILY 10/22/20 06/16/21 (formulary)] Nelson-3 Fatty Acids/Fish Oil [Fish 1 cap PO DAILY 10/22/20 06/16/21 Oil 1,000 mg Softgel] Ubidecarenone [Co Q-10] 200 mg PO DAILY 10/22/20 06/16/21 Allergies Allergy/AdvReac Type Severity Reaction Status Date / Time No Known Allergies Allergy Verified 06/16/21 11:24 Review of Systems ROS Statement: Those systems with pertinent positive or pertinent negative responses have been documented in the HPI. ROS Other: All systems not noted in ROS Statement are negative. Past Medical History Past Medical History: Hyperlipidemia, Hypertension History of Any Multi-Drug Resistant Organisms: None Reported Past Surgical History: No Surgical Hx Reported Past Psychological History: Depression Smoking Status: Current every day smoker Past Alcohol Use History: Occasional Past Drug Use History: None Reported - Past Family History family Family Medical History: Unable to Obtain General Exam Limitations: no limitations General appearance: alert, in no apparent distress Head exam: Present: atraumatic, normocephalic, normal inspection Eye exam: Present: normal appearance, PERRL, EOMI. Absent: scleral icterus, conjunctival injection, periorbital swelling ENT exam: Present: normal exam, mucous membranes moist Neck exam: Present: normal inspection. Absent: tenderness, meningismus, lymphadenopathy Respiratory exam: Present: normal lung sounds bilaterally. Absent: respiratory distress, wheezes, rales, rhonchi, stridor Cardiovascular Exam: Present: regular rate, normal rhythm, normal heart sounds. Absent: systolic murmur, diastolic murmur, rubs, gallop, clicks Neurological exam: Present: alert Psychiatric exam: Present: depressed Skin exam: Present: warm, dry, intact, normal color. Absent: rash Course Vital Signs 06/16/21 08:25 Temperature 97.1 F L Pulse Rate 87 Respiratory 18 Rate Blood Pressure 171/85 O2 Sat by Pulse 99 Oximetry Medical Decision Making - Medical Decision Making Patient evaluate this will be admitted for psychiatric treatment. - Lab Data Lab Results 06/16/21 Range/Units 09:29 Urine Opiates Screen Not Detected (NotDetected) Ur Oxycodone Screen Not Detected (NotDetected) Urine Methadone Screen Not Detected (NotDetected) Ur Propoxyphene Screen Not Detected (NotDetected) Ur Barbiturates Screen Not Detected (NotDetected) U Tricyclic Antidepress Not Detected (NotDetected) Ur Phencyclidine Scrn Not Detected (NotDetected) Ur Amphetamines Screen Not Detected (NotDetected) U Methamphetamines Scrn Not Detected (NotDetected) U Benzodiazepines Scrn Not Detected (NotDetected) Urine Cocaine Screen Not Detected (NotDetected) U Marijuana (THC) Screen Not Detected (NotDetected) Disposition Clinical Impression: Depression, Acute anxiety Disposition: TRANSFER TO PSYCH HOSP/UNIT Referrals: None,Stated [Primary Care Provider] - 1-2 days
[2021-06-16 10:56] LABS: Amphetamine Screen,Urine Not Detected (NotDetected); Barbiturate Screen,Urine Not Detected (NotDetected); Benzodiazepines Screen,Urine Not Detected (NotDetected); Cocaine Screen,Urine Not Detected (NotDetected); Methadone Screen, Urine Not Detected (NotDetected); Opiate Screen,Urine Not Detected (NotDetected); Oxycodone Screen, Urine Not Detected (NotDetected); Phencyclidine Screen,Urine Not Detected (NotDetected); Tricyclic Antidepressant,Urine Not Detected (NotDetected); Urn Cannabinoid Scrn Not Detected (NotDetected)
[2021-06-16] MEDS ORDERED: ACETAMINOPHEN TAB 325 MG TAB PO PRN (15:30)
[2021-06-16] MEDS ORDERED: MAG HYDROX/AL HYDROX/SIMETH 30 ML CUP PO PRN (15:30)
[2021-06-16] MEDS ORDERED: MAGNESIUM HYDROXIDE 2,400 MG/10 ML CUP PO PRN (15:30)
[2021-06-16] MEDS ORDERED: HALOPERIDOL LACTATE 5 MG/ML 1 ML VIAL IM PRN (15:47)
[2021-06-16] MEDS ORDERED: LORazepam 1 MG TAB PO PRN (15:47)
[2021-06-16] MEDS ORDERED: haloperidoL 5 MG TAB PO PRN (15:48)
[2021-06-16] MEDS ORDERED: LORazepam 2 MG/ML INJ IM PRN (15:48)
[2021-06-16] MEDS: NICOTINE 14MG/24HR PATCH TRANSDERM SCH (17:56)
[2021-06-17 08:11] LABS: Basophils % (A) 0 %; Eosinophils # (A) 0.1 k/uL (0-0.7); Eosinophils % (A) 1 %; HCT 48.6 % (39.0-53.0); HGB 15.6 gm/dL (13.0-17.5); Lymphocytes # (A) 2.4 k/uL (1.0-4.8); Lymphocytes % (A) 44 %; MCH 30.1 pg (25.0-35.0); MCHC 32.1 g/dL (31.0-37.0); MCV 93.6 fL (80.0-100.0); Mean Platelet Volume 7.6; Monocytes # (A) 0.3 k/uL (0-1.0); Monocytes % (A) 6 %; Neutrophils # (A) 2.6 k/uL (1.3-7.7); Neutrophils % (A) 46 %; Platelet Count 284 k/uL (150-450); RBC 5.19 m/uL (4.30-5.90); RDW 13.7 % (11.5-15.5); WBC 5.6 k/uL (3.8-10.6)
[2021-06-17 08:22] LABS: ALT 25 U/L (4-49); AST 39 U/L (17-59); African American GFR (CKD) 79 (>60 ml/min/1.73 sqM); Albumin 3.7 g/dL (3.5-5.0); Alkaline Phosphatase 82 U/L (38-126); Anion Gap 2 mmol/L; Blood Urea Nitrogen 15 mg/dL (9-20); Calcium 9.6 mg/dL (8.4-10.2); Carbon Dioxide 30 mmol/L (22-30); Chloride 104 mmol/L (98-107); Glucose 105 mg/dL (74-99); Non-African American GFR(CKD) 68 (>60 ml/min/1.73 sqM); Potassium 4.4 mmol/L (3.5-5.1); Sodium 136 mmol/L (137-145); Total Bilirubin 0.9 mg/dL (0.2-1.3)
[2021-06-17] MEDS ORDERED: NON FORMULARY DRUG (Ubidecarenone [Co Q-10] 100 MG Capsule) PO SCH (09:00)
[2021-06-17] MEDS ORDERED: NON FORMULARY DRUG (Omega-3 Fatty Acids/Fish Oil [Fish Oil 1,000 Mg Softgel] 1 EACH Capsul PO SCH (09:00)
[2021-06-17] MEDS: ASCORBIC ACID 500 MG TAB PO SCH (09:46)
[2021-06-17] MEDS: MULTIVITAMINS, THERA 1 EACH TAB PO SCH (09:47)
[2021-06-17] MEDS: NICOTINE 14MG/24HR PATCH TRANSDERM SCH (09:47)
--- NOTE | 2021-06-17 10:57 | P.HPIM ---
History of Present Illness H&P Date: 06/17/21 Patient admitted to the hospital for diffusion thoughts And we'll consulted for medical management patient is not complaining of any chest pain or shortness of breath at this time complains of some pain in the toes the left side Review of systems and systems has been reviewed all negative and positive findings as per history of present illness Constitutional: No acute distress, conversant, pleasant Eyes: Anicteric sclerae, moist conjunctiva, no lid-lag PERRLA likely conjunctivitis ENMT: NC/AT Oropharynx clear, no erythema, exudates Neck: Supple, FROM, no masses, or JVD No carotid bruits No thyromegaly Lungs: Clear to auscultation Clear to percussion Normal respiratory effort, no accessory muscle use Cardiovascular: Heart regular in rate and rhythm, No murmurs, gallops, or rubs No peripheral edema Abdominal: Soft Nontender, no guarding, rebound or rigidity Abdomen moving with respiration Normoactive bowel sounds No hepatomegaly, No splenomegaly No palpable mass No abdominal wall hernia noted Skin: Normal temperature, tone, texture, turgor No induration No subcutaneous nodules No rash, lesions No ulcers Extremities: No digital cyanosis No clubbing Pedal pulses intact and symmetrical Radial pulses intact and symmetrical Normal gait and station No calf tenderness Psychiatric:Alert and oriented to person, place and time Appropriate affect Intact judgement Neuro: Muscles Strength 5/5 in all 4 extremities Sensation to light touch grossly present throughout Cranial nerves II-XII grossly intact No focal sensory deficits ast Medical History Past Medical History: Hyperlipidemia, Hypertension History of Any Multi-Drug Resistant Organisms: None Reported Past Surgical History: No Surgical Hx Reported Past Psychological History: Depression Smoking Status: Current every day smoker Past Alcohol Use History: Occasional Past Drug Use History: None Reported - Past Family History family Family Medical History: Unable to Obtain Delusions management as per psychiatric Likely conjunctivitis will start the patient on antibiotics Hypertension Medically stable Past Medical History Past Medical History: Hyperlipidemia, Hypertension History of Any Multi-Drug Resistant Organisms: None Reported Past Surgical History: No Surgical Hx Reported Past Anesthesia/Blood Transfusion Reactions: No Reported Reaction Past Psychological History: Depression Smoking Status: Current every day smoker Past Alcohol Use History: Occasional Past Drug Use History: None Reported - Past Family History family Family Medical History: Unable to Obtain Medications and Allergies Home Medications Medication Instructions Recorded Confirmed Type Ascorbic Acid [Vitamin C with Rachel 500 mg PO DAILY 06/22/21 02/14/22 History Hips] Multivitamins, Thera [Multivitamin 1 tab PO DAILY 10/22/20 06/16/21 History (formulary)] Christmas-3 Fatty Acids/Fish Oil [Fish 1 cap PO DAILY 10/22/20 06/16/21 History Oil 1,000 mg Softgel] Ubidecarenone [Co Q-10] 200 mg PO DAILY 10/22/20 06/16/21 History Allergies Allergy/AdvReac Type Severity Reaction Status Date / Time No Known Allergies Allergy Verified 06/16/21 11:24 Physical Exam Vitals: Vital Signs Temp Pulse Resp BP Pulse Ox 06/17/21 07:14 97.4 F L 76 171/80 96 06/16/21 17:52 97.4 F L 80 16 183/86 Intake and Output 06/16/21 06/17/21 06/17/21 22:59 06:59 14:59 Other: Weight 93.44 kg Results CBC & Chem 7: 06/17/21 07:40 06/17/21 07:40 Labs: Abnormal Lab Results - Last 24 Hours (Table) 06/17/21 Range/Units 07:40 Sodium 136 L (137-145) mmol/L Glucose 105 H (74-99) mg/dL Thrombosis Risk Factor Assmnt - Choose All That Apply Any of the Below Risk Factors Present?: No Other Risk Factors: No Other congenital or acquired thrombophilia - If yes, enter type in comment: No Thrombosis Risk Factor Assessment Level: Very Low Risk
[2021-06-17] MEDS: TOBRA-DEXAMET 0.3-0.1% OPHTH DROPS 2.5 ML BTL BOTH EYES SCH ×3 (13:00→20:37)
--- NOTE | 2021-06-17 14:45 | P.HP ---
Psychiatric H&P - . H&P Date: 06/17/21 History & Physical: Allergies Allergy/AdvReac Type Severity Reaction Status Date / Time No Known Allergies Allergy Verified 06/16/21 11:24 Vital Signs Temp 97.4 F L 06/17/21 07:14 Pulse 76 06/17/21 07:14 Resp 16 06/16/21 17:52 BP 171/80 06/17/21 07:14 Pulse Ox 96 06/17/21 07:14 Intake & Output 06/16/21 06/17/21 06/17/21 18:59 06:59 18:59 Weight 93.44 kg Laboratory Last Values WBC 5.6 k/uL (3.8-10.6) 06/17/21 07:40 RBC 5.19 m/uL (4.30-5.90) 06/17/21 07:40 Hgb 15.6 gm/dL (13.0-17.5) 06/17/21 07:40 Hct 48.6 % (39.0-53.0) 06/17/21 07:40 MCV 93.6 fL (80.0-100.0) 06/17/21 07:40 MCH 30.1 pg (25.0-35.0) 06/17/21 07:40 MCHC 32.1 g/dL (31.0-37.0) 06/17/21 07:40 RDW 13.7 % (11.5-15.5) 06/17/21 07:40 Plt Count 284 k/uL (150-450) 06/17/21 07:40 MPV 7.6 06/17/21 07:40 Neutrophils % 46 % 06/17/21 07:40 Lymphocytes % 44 % 06/17/21 07:40 Monocytes % 6 % 06/17/21 07:40 Eosinophils % 1 % 06/17/21 07:40 Basophils % 0 % 06/17/21 07:40 Neutrophils # 2.6 k/uL (1.3-7.7) 06/17/21 07:40 Lymphocytes # 2.4 k/uL (1.0-4.8) 06/17/21 07:40 Monocytes # 0.3 k/uL (0-1.0) 06/17/21 07:40 Eosinophils # 0.1 k/uL (0-0.7) 06/17/21 07:40 Basophils # 0.0 k/uL (0-0.2) 06/17/21 07:40 Sodium 136 mmol/L (137-145) L 06/17/21 07:40 Potassium 4.4 mmol/L (3.5-5.1) 06/17/21 07:40 Chloride 104 mmol/L (98-107) 06/17/21 07:40 Carbon Dioxide 30 mmol/L (22-30) 06/17/21 07:40 Anion Gap 2 mmol/L 06/17/21 07:40 BUN 15 mg/dL (9-20) 06/17/21 07:40 Creatinine 1.08 mg/dL (0.66-1.25) 06/17/21 07:40 Est GFR (CKD-EPI)AfAm 79 (>60 ml/min/1.73 sqM) 06/17/21 07:40 Est GFR (CKD-EPI)NonAf 68 (>60 ml/min/1.73 sqM) 06/17/21 07:40 Glucose 105 mg/dL (74-99) H 06/17/21 07:[address] Glu mg/dL 168 06/17/21 07:40 Hemoglobin A1c 7.5 % (0.0-6.0) H 06/17/21 07:40 Calcium 9.6 mg/dL (8.4-10.2) 06/17/21 07:40 Total Bilirubin 0.9 mg/dL (0.2-1.3) 06/17/21 07:40 AST 39 U/L (17-59) 06/17/21 07:40 ALT 25 U/L (4-49) 06/17/21 07:40 Alkaline Phosphatase 82 U/L (38-126) 06/17/21 07:40 Total Protein 7.0 g/dL (6.3-8.2) 06/17/21 07:40 Albumin 3.7 g/dL (3.5-5.0) 06/17/21 07:40 TSH 0.954 mIU/L (0.465-4.680) 06/17/21 07:40 Urine Opiates Screen Not Detected (NotDetected) 06/16/21 09:29 Ur Oxycodone Screen Not Detected (NotDetected) 06/16/21 09:29 Urine Methadone Screen Not Detected (NotDetected) 06/16/21 09:29 Ur Propoxyphene Screen Not Detected (NotDetected) 06/16/21 09:29 Ur Barbiturates Screen Not Detected (NotDetected) 06/16/21 09:29 U Tricyclic Antidepress Not Detected (NotDetected) 06/16/21 09:29 Ur Phencyclidine Scrn Not Detected (NotDetected) 06/16/21 09:29 Ur Amphetamines Screen Not Detected (NotDetected) 06/16/21 09:29 U Methamphetamines Scrn Not Detected (NotDetected) 06/16/21 09:29 U Benzodiazepines Scrn Not Detected (NotDetected) 06/16/21 09:29 Urine Cocaine Screen Not Detected (NotDetected) 06/16/21 09:29 U Marijuana (THC) Screen Not Detected (NotDetected) 06/16/21 09:29 Coronavirus (PCR) Not Detected (Not Detectd) 06/16/21 12:30 06/17/21 14:45 IDENTIFYING DATA: Patient is a single, unemployed, 70-year-old -[place] male with a significant history of schizophrenia who presents to the hospital with delusional thoughts and pain HPI: Patient who presented to the emergency department on 06/16/2021 on his own complaining of "confusion, tooth tissue, pain, and something is messing me up real bad." The patient was noted by EPS to be very unkempt with very bloodshot eyes. He reported concern that something was "messing me up real bad." He expresses numerous things are messing with his head. He endorsed significant paranoid thoughts believing that he had a tooth implant that is causing people to spy on him. He was subsequently admitted to the psychiatric unit and signed in voluntarily. Upon presentation in the psychiatric unit, the patient is a poor historian of the events leading up to this hospitalization. He reports that he walked to this hospital from the "[facility] [employer] [facility]." He expresses that he was having concerns because of a dental plate that was placed in his mouth that is causing him significant pain issues. When asked if he is concerned about any significant paranoia or tracker in the tooth, the patient denies this however as the conversation continued, the patient does express significant paranoia that people are "messing my brain out and making people think things about me that aren't true." The patient also reports that he has a cousin with the same name as him who has been committing all sorts of crimes around the area and causing people to think that he is the one responsible. He reports numerous somatic issues including significant pain in his back, abdomen, knees, as well as his tooth. In regards to mood symptoms, the patient is not endorsing any suicidal or homicidal ideation, intention, and/or plan. However, the patient reports that he has been sleeping poorly. He reports that he has been unable to sleep for the past week. The patient does recall that he was previously treated for psychiatric illness in the past however is unable to recall what medications he has been prescribed. He is difficult to follow as he often goes on tangents and talks about his time being incarcerated despite numerous attempts at redirection. He subsequently admitted for further evaluation. PAST PSYCHIATRIC HISTORY: Patient has a history of schizophrenia and was last admitted on to the psychiatric unit in April 2020. At that time, the patient was discharged on a regimen of Zyprexa. The patient was scheduled to follow up with [facility] however is unable to provide any information of any follow-up at this time. Patient denies any history of suicide attempts in the past. PMH: Past Medical History: Hyperlipidemia, Hypertension History of Any Multi-Drug Resistant Organisms: None Reported Past Surgical History: No Surgical Hx Reported Past Psychological History: Depression Smoking Status: Current every day smoker Past Alcohol Use History: Occasional Past Drug Use History: None Reported ALLERGIES: NO KNOWN DRUG ALLERGIES. CHEMICAL DEPENDENCY HISTORY: Patient denies any marijuana, or illicit drug use. He reports occasional alcohol use. UDS negative. He reports he smokes one pack per day. FAMILY PSYCHIATRIC/SUBSTANCE USE HISTORY: Unable to assess. SOCIAL HISTORY: Patient reports that he was incarcerated for 38 years was at least partially 5-6 years ago. He reports that he is currently not on parole or probation. He is single, never , and has no children. Is currently homeless. MENTAL STATUS EXAM: General Appearance: Patient appears to be stated age is alert, directable, and attempts to cooperate. Patient appears to have poor hygiene and grooming. Patient's eyes and appeared to be very bloodshot. Behavior: Patient is seated without any agitated behavior. Elevated psychomotor activity. Fair eye contact. The patient often winces in pain due to perceived tooth pain. Speech: Patient's speech is fluent and nonpressured. Spontaneous, hyperverbal, and often tangential. Mood/Affect: Patient reports their mood is "not feeling good." Affect is expansive. Suicidality/Homicidality: Patient denies having any homicidal ideation intent or plan. Denies any suicidal ideations intent or plan Perceptions: Patient denies any visual hallucinations and denies any auditory hallucinations Though content/process: The patient endorses significant delusion of subjective doubles. He also expresses paranoid and somatic delusions. Memory and concentration: AOX3, grossly intact for the purposes of this session. Can spell "WORLD" backwards Judgment and insight: poor STRENGTHS/WEAKNESSES: Strength is that the patient is seeking help. Weakness is that the patient has severe mental illness and a significant history of incarceration and homelessness. INTELLECT: average IMPRESSIONS: Schizophrenia Nicotine dependence Rule out tic disorder PLAN: -Patient is admitted under voluntary status to MHU for stabilization of psychiatric symptoms and safety. Patient signed adult voluntary form and medication consent and is placed in patient's chart. -Medications : Will start patient on Cymbalta 20 mg by mouth twice a day for management of depression/neuropathic pain Risperdal 0.5 mg by mouth twice a day for psychosis and possible tic disorder -Ativan and Haldol PRN for agitation/aggression -Patient was informed of the risks, benefits and side effects of the medication and patient verbally consented to taking the medications. Patient signed med consent form and was placed in chart. -Internal Medicine consult to perform medical evaluation and physical. -NRT - nicotine patch - on board for discharge planning. Encourage patient to participate in groups to work on coping skills. 06/17/21 14:45
[2021-06-17 15:31] LABS: VLDL Calculation 14.48 mg/dL (5.00-40.00)
[2021-06-17] MEDS: DULoxetine HCL 20 MG CAPSULE.DR PO SCH (20:38)
[2021-06-17] MEDS: risperiDONE 0.5 MG TAB PO SCH (20:38)
[2021-06-18] MEDS: MULTIVITAMINS, THERA 1 EACH TAB PO SCH (08:11)
[2021-06-18] MEDS: NICOTINE 14MG/24HR PATCH TRANSDERM SCH (08:11)
[2021-06-18] MEDS: ASCORBIC ACID 500 MG TAB PO SCH (08:11)
[2021-06-18] MEDS: risperiDONE 0.5 MG TAB PO SCH (08:11)
[2021-06-18] MEDS: DULoxetine HCL 20 MG CAPSULE.DR PO SCH (08:11)
[2021-06-18] MEDS: TOBRA-DEXAMET 0.3-0.1% OPHTH DROPS 2.5 ML BTL BOTH EYES SCH ×6 (08:12→20:28)
--- NOTE | 2021-06-18 09:40 | P.PN ---
Progress Note - Text Progress Note Date: 06/18/21 Interval History: Patient was seen wandering the hallways and was directable and agreeable to speak with keno writer in the office. The patient maintains that he continues to have issues with his tooth. He continues to remain delusional believing that is contributing to some sort of tracking device. He vehemently denies that this is related to any mental illness. He expresses that he does not want to take medications to treat mental illness or pain and would rather have the tooth just removed. He reports that he would like a upsetter helper in order to sariah the dentist to placed the tooth in his mouth. He continues to state that he is a member of the [place] [employer] and that proves he is not "crazy." He has been adherent with his medications and is not endorsing any side effects at this time. He reports no suicidal or homicidal ideation, intention, and/or plan. He denies any issues regarding his sleep or appetite. He reports no medication side effects. Mental Status Exam: General Appearance: Patient appears to be stated age is alert, directable, and cooperative. Behavior: Patient is calmly seated without any agitated behavior. The patient often winces in pain due to perceived tooth pain. Speech: Patient's speech is fluent and nonpressured. Mood/Affect: Mood is "I'm not good." Affect is fearful and annoyed. Suicidality/Homicidality: Patient denies having any suicidal or homicidal ideation intent or plan. Perceptions: Patient denies any visual hallucinations and denies any auditory hallucinations Though content/process: Paranoid delusions and delusions of surveillance. Memory and concentration: AOX3, grossly intact for the purposes of this session Judgment and insight: Poor Vital Signs Temp 97.4 F L 06/17/21 07:14 Pulse 76 06/17/21 07:14 Resp 16 06/16/21 17:52 BP 171/80 06/17/21 07:14 Pulse Ox 96 06/17/21 07:14 Laboratory Results - Last 24 Hours 06/17/21 06/17/21 07:40 07:[address] Glu mg/dL 168 Hemoglobin A1c 7.5 H Triglycerides 72.40 Cholesterol 222.00 H LDL Cholesterol, Calc 144.0 H VLDL Cholesterol, Calc 14.48 HDL Cholesterol 63.50 H Cholesterol/HDL Ratio 3.50 Assessment Schizophrenia Nicotine dependence Plan: -Patient continues to meet criteria for inpatient psychiatric admission for symptom stabilization and safety. Patient has signed adult voluntary form and medication consent and was placed in patient's chart. If patient becomes nonadherent with treatment we will likely require petition and certification. -Medications: Increase Cymbalta to 30 mg twice a day for management of depression and neuropathic pain Increase Risperdal to 1 mg twice a day for for psychosis. -When necessary Ativan and Haldol for agitation/aggression. -NRT - nicotine patch -SW on board for discharge planning. Encouraged the patient to participate in milieu.
[2021-06-18] MEDS: risperiDONE 1 MG TAB PO SCH (20:27)
[2021-06-18] MEDS: DULoxetine HCL 30 MG CAPSULE.DR PO SCH (20:28)
[2021-06-19] MEDS: TOBRA-DEXAMET 0.3-0.1% OPHTH DROPS 2.5 ML BTL BOTH EYES SCH ×5 (07:23→20:37)
[2021-06-19] MEDS: DULoxetine HCL 30 MG CAPSULE.DR PO SCH ×2 (08:43→20:38)
[2021-06-19] MEDS: MULTIVITAMINS, THERA 1 EACH TAB PO SCH (08:43)
[2021-06-19] MEDS: NICOTINE 14MG/24HR PATCH TRANSDERM SCH (08:43)
[2021-06-19] MEDS: risperiDONE 1 MG TAB PO SCH ×2 (08:43→20:38)
[2021-06-19] MEDS: ASCORBIC ACID 500 MG TAB PO SCH (08:43)
--- NOTE | 2021-06-19 11:57 | P.PN ---
Progress Note - Text Progress Note Date: 06/19/21 Interval History: Patient was seen wandering the hallways and was directable and agreeable to speak with ad copy writer in the office. Patient is currently denying any suicidal or homicidal ideation, intention, and/or plan. He is not reporting any auditory or visual hallucinations. He reports no significant concerns regarding his tooth today. He is denying any tooth pain and is not reporting any delusions of surveillance at this time. The patient has been adherent with his medications and is not endorsing any significant side effects at this time. Furthermore, the patient reports that he does not wish to have any change in his current medication regimen. He does express concern for his housing situation as he is currently homeless. Mental Status Exam: General Appearance: Patient appears to be stated age is alert, directable, and cooperative. Behavior: Patient is calmly seated without any agitated behavior. Normal psychomotor activity today. Good eye contact. Speech: Patient's speech is fluent and nonpressured. Mood/Affect: Mood is "I'm feeling pretty good." Affect is euthymic. Suicidality/Homicidality: Patient denies having any suicidal or homicidal ideation intent or plan. Perceptions: Patient denies any visual hallucinations and denies any auditory hallucinations Though content/process: No delusional thought content is endorse today. Thought process is linear, logical, and goal oriented. Memory and concentration: AOX3, grossly intact for the purposes of this session Judgment and insight: Improving Vital Signs Temp 98.7 F 06/19/21 06:51 Pulse 67 06/19/21 06:51 Resp 14 06/19/21 06:51 BP 171/85 06/19/21 06:51 Pulse Ox 99 06/19/21 06:51 Assessment Schizophrenia Nicotine dependence Plan: -Patient continues to meet criteria for inpatient psychiatric admission for symptom stabilization and safety. Patient has signed adult voluntary form and medication consent and was placed in patient's chart. If patient becomes nonadherent with treatment we will likely require petition and certification. -Medications: Continue Cymbalta 30 mg twice a day for management of depression and neuropathic pain Continue Risperdal 1 mg twice a day for for psychosis. -When necessary Ativan and Haldol for agitation/aggression. -NRT - nicotine patch -SW on board for discharge planning. Encouraged the patient to participate in milieu.
[2021-06-20] MEDS: TOBRA-DEXAMET 0.3-0.1% OPHTH DROPS 2.5 ML BTL BOTH EYES SCH ×4 (04:24→12:24)
[2021-06-20 04:49] VITALS: TEMP 97.2
[2021-06-20] MEDS: risperiDONE 1 MG TAB PO SCH (08:29)
[2021-06-20] MEDS: ASCORBIC ACID 500 MG TAB PO SCH (08:29)
[2021-06-20] MEDS: NICOTINE 14MG/24HR PATCH TRANSDERM SCH (08:29)
[2021-06-20] MEDS: DULoxetine HCL 30 MG CAPSULE.DR PO SCH (08:29)
[2021-06-20] MEDS: MULTIVITAMINS, THERA 1 EACH TAB PO SCH (08:29)
[2021-06-20 08:34] VITALS: RESP 20
[2021-06-20 09:59] VITALS: BP 175/90; PULSE 77
[2021-06-20] MEDS ORDERED: NIFEdipine XL 30 MG TAB.ER.24 PO SCH (10:26)
--- NOTE | 2021-06-20 12:27 | P.DS ---
Providers Date of admission: 06/16/21 15:26 Expected date of discharge: 06/20/21 Attending physician: Matt Montoya MD Consults: 06/16/21 15:47 Consult Physician Routine Consulting Provider: Yazan Bruce Consult Reason/Comments: H&P and medical Do you want consulting provider notified?: Yes Primary care physician: Stated None - Discharge Diagnosis(es) (1) Schizophrenia, paranoid, chronic Current Visit: Yes Status: Acute Priority: High (2) Nicotine dependence Current Visit: Yes Status: Chronic Priority: Medium Hospital Course: Admission HPI: Patient is a single, unemployed, 70-year-old -Guyanese male with a significant history of schizophrenia who presents to the hospital with delusional thoughts and pain Patient who presented to the emergency department on 06/16/2021 on his own complaining of "confusion, tooth tissue, pain, and something is messing me up real bad." The patient was noted by EPS to be very unkempt with very bloodshot eyes. He reported concern that something was "messing me up real bad." He expresses numerous things are messing with his head. He endorsed significant paranoid thoughts believing that he had a tooth implant that is causing people to spy on him. He was subsequently admitted to the psychiatric unit and signed in voluntarily. Upon presentation in the psychiatric unit, the patient is a poor historian of the events leading up to this hospitalization. He reports that he walked to this hospital from the "[facility]." He expresses that he was having concerns because of a dental plate that was placed in his mouth that is causing him significant pain issues. When asked if he is concerned about any significant paranoia or tracker in the tooth, the patient denies this however as the conversation continued, the patient does express significant paranoia that people are "messing my brain out and making people think things about me that aren't true." The patient also reports that he has a cousin with the same name as him who has been committing all sorts of crimes around the area and causing people to think that he is the one responsible. He reports numerous somatic issues including significant pain in his back, abdomen, knees, as well as his tooth. In regards to mood symptoms, the patient is not endorsing any suicidal or homicidal ideation, intention, and/or plan. However, the patient reports that he has been sleeping poorly. He reports that he has been unable to sleep for the past week. The patient does recall that he was previously treated for psychiatric illness in the past however is unable to recall what medications he has been prescribed. He is difficult to follow as he often goes on tangents and talks about his time being incarcerated despite numerous attempts at redirection. He subsequently admitted for further evaluation. Patient has a history of schizophrenia and was last admitted on to the psychiatric unit in April 2020. At that time, the patient was discharged on a regimen of Zyprexa. The patient was scheduled to follow up with [facility] however is unable to provide any information of any follow-up at this time. Patient denies any history of suicide attempts in the past. Hospital course: Upon admission to the unit patient was initially disorganized and paranoid. Patient was however directable and agreeable to commence treatment. Patient got along well with other patients on the unit and followed unit protocol. Patient was compliant with the medications and denied any side effects throughout hospital course. Patient was started on Cymbalta and Risperdal for management of depression, neuropathic pain, and psychosis. Patient spoke of his stressors and engaged in therapy both group and individual. Patient was also seen by medical team for history and physical exam. Over the course of the hospital station, the patient's medications were gradually titrated and the patient displayed significant improvement in regards his target symptoms of gross disorganization and paranoia. However, the patient continued to endorse significant tooth pain. He requested that this provider tried to contact his dentist in order to find out what was placed in his tooth and was informed that this is not the job of that provider to provide dental work. On the day of discharge, the patient was initially denying any suicidal or homicidal ideation, intention, and/or plan. He reported no auditory or visual hallucinations. He denied any paranoia or other delusions. When informed that he was going to be discharge, the patient began to endorse numerous somatic complaints including burning in his groin region, shoulder pain, knee pain, and blurry vision. He became quite confrontational stating that we needed to find out what the dentist placed in his tooth. He was informed that we are not a dentist office and that he would have to see a dentist in regards to his tooth pain. The patient is requesting that he continued to be admitted into the psychiatric unit so that he may find out what is going on in regards to his tooth however there was no significant criteria for continued inpatient psychiatric hospitalization and there is question for secondary gain. As the patient no longer met criteria for continued inpatient psychiatric hospital station, he was subsequently discharged. The patient was counseled at length and avoiding all substances including alcohol and marijuana. Furthermore he was encouraged to follow-up with his outpatient appointments or his primary care and for mental health. Mental status exam: General Appearance: Patient appears to be stated age is alert, pleasant, and cooperative. Patient is in no acute distress and has fair hygiene and grooming Behavior: Patient is calmly seated without any agitated behavior. Speech: Patient's speech is fluent and nonpressured. Mood/Affect: Patient reports their mood is "you need to contact the dentist to put this tooth in my mouth", affect is confrontational but not agitated. Suicidality/Homicidality: Patient denies having any suicidal or homicidal ideation intent or plan. Perceptions: Patient denies any auditory or visual hallucinations. Though content/process: There is no evidence of any delusional thought content and thought process is linear and goal-directed. Memory and concentration: AOX3, grossly intact for the purposes of this session. Can spell "WORLD" backwards correctly. Judgment and insight: Improved with guarded prognosis Vital Signs Temp 97.2 F L 06/20/21 04:48 Pulse 77 06/20/21 09:58 Resp 20 06/20/21 08:27 BP 175/90 06/20/21 09:58 Pulse Ox 99 06/19/21 06:51 Impression: Schizophrenia Nicotine dependence Plan: -Continue with discharge today as patient has improved and stabilized psychiatrically and is not currently an imminent threat to himself and/or others. Patient will remain at chronically elevated risk due to his homeles sness. -Continue medications: Cymbalta 30 mg by mouth twice a day for depression and neuropathic pain Risperdal 1 mg by mouth twice a day for psychosis -Patient was counseled on the need for medication compliance and appropriate follow-up at mental health and also primary care for medical issues. Patient verbalized understanding and agreed. -Social work to arrange for and conduct family meeting to ensure safety upon discharge and answer any questions/concerns. Social work also to arrange for patients follow up appointments with [facility] for psychiatric care along with follow up with primary care provider. -Patient counseled on abstaining from recreational drugs and marijuana and alcohol. Was informed/educated on the adverse effects on their physical and mental health. Patient verbally agreed and understood. -Patient was instructed to return to the hospital or seek immediate medical care if their psychiatric or medical symptoms do worsen or reoccur. -Psychoeducation and supportive therapy provided to patient. Risks and benefits of pharmacological treatment versus the risks and benefits of nontreatment weight and discussed. Informed consent discussion held. Common side effects of psychotropics discussed such as, but not limited to headache, GI disturbance, sexual dysfunction, movement disorders, sedation, and orthostatic hypotension. Life threatening and blackbox warnings of prescribed medications also discussed. Potential risks of operating a vehicle or heavy machinery discussed with patient at length. Advised on importance of compliance and a reliable and responsible manner. Patient advised to review FDA consumer labeling of all medications prior to taking. Patient verbalized understanding of potential risks, and agrees with current treatment plan. Patient advised to medically contact physician/emergency personnel if any acute changes in condition occur. Laboratory Results WBC 5.6 k/uL (3.8-10.6) 06/17/21 07:40 RBC 5.19 m/uL (4.30-5.90) 06/17/21 07:40 Hgb 15.6 gm/dL (13.0-17.5) 06/17/21 07:40 Hct 48.6 % (39.0-53.0) 06/17/21 07:40 MCV 93.6 fL (80.0-100.0) 06/17/21 07:40 MCH 30.1 pg (25.0-35.0) 06/17/21 07:40 MCHC 32.1 g/dL (31.0-37.0) 06/17/21 07:40 RDW 13.7 % (11.5-15.5) 06/17/21 07:40 Plt Count 284 k/uL (150-450) 06/17/21 07:40 MPV 7.6 06/17/21 07:40 Neutrophils % 46 % 06/17/21 07:40 Lymphocytes % 44 % 06/17/21 07:40 Monocytes % 6 % 06/17/21 07:40 Eosinophils % 1 % 06/17/21 07:40 Basophils % 0 % 06/17/21 07:40 Neutrophils # 2.6 k/uL (1.3-7.7) 06/17/21 07:40 Lymphocytes # 2.4 k/uL (1.0-4.8) 06/17/21 07:40 Monocytes # 0.3 k/uL (0-1.0) 06/17/21 07:40 Eosinophils # 0.1 k/uL (0-0.7) 06/17/21 07:40 Basophils # 0.0 k/uL (0-0.2) 06/17/21 07:40 Sodium 136 mmol/L (137-145) L 06/17/21 07:40 Potassium 4.4 mmol/L (3.5-5.1) 06/17/21 07:40 Chloride 104 mmol/L (98-107) 06/17/21 07:40 Carbon Dioxide 30 mmol/L (22-30) 06/17/21 07:40 Anion Gap 2 mmol/L 06/17/21 07:40 BUN 15 mg/dL (9-20) 06/17/21 07:40 Creatinine 1.08 mg/dL (0.66-1.25) 06/17/21 07:40 Est GFR (CKD-EPI)AfAm 79 (>60 ml/min/1.73 sqM) 06/17/21 07:40 Est GFR (CKD-EPI)NonAf 68 (>60 ml/min/1.73 sqM) 06/17/21 07:40 Glucose 105 mg/dL (74-99) H 06/17/21 07:[address] Glu mg/dL 168 06/17/21 07:40 Hemoglobin A1c 7.5 % (0.0-6.0) H 06/17/21 07:40 Calcium 9.6 mg/dL (8.4-10.2) 06/17/21 07:40 Total Bilirubin 0.9 mg/dL (0.2-1.3) 06/17/21 07:40 AST 39 U/L (17-59) 06/17/21 07:40 ALT 25 U/L (4-49) 06/17/21 07:40 Alkaline Phosphatase 82 U/L (38-126) 06/17/21 07:40 Total Protein 7.0 g/dL (6.3-8.2) 06/17/21 07:40 Albumin 3.7 g/dL (3.5-5.0) 06/17/21 07:40 Triglycerides 72.40 mg/dL (0.00-149.00) 06/17/21 07:40 Cholesterol 222.00 mg/dL (0.00-200.00) H 06/17/21 07:40 LDL Cholesterol, Calc 144.0 mg/dL (0.0-131.0) H 06/17/21 07:40 VLDL Cholesterol, Calc 14.48 mg/dL (5.00-40.00) 06/17/21 07:40 HDL Cholesterol 63.50 mg/dL (40.00-60.00) H 06/17/21 07:40 Cholesterol/HDL Ratio 3.50 Ratio 06/17/21 07:40 TSH 0.954 mIU/L (0.465-4.680) 06/17/21 07:40 Urine Opiates Screen Not Detected (NotDetected) 06/16/21 09:29 Ur Oxycodone Screen Not Detected (NotDetected) 06/16/21 09:29 Urine Methadone Screen Not Detected (NotDetected) 06/16/21 09:29 Ur Propoxyphene Screen Not Detected (NotDetected) 06/16/21 09:29 Ur Barbiturates Screen Not Detected (NotDetected) 06/16/21 09:29 U Tricyclic Antidepress Not Detected (NotDetected) 06/16/21 09:29 Ur Phencyclidine Scrn Not Detected (NotDetected) 06/16/21 09:29 Ur Amphetamines Screen Not Detected (NotDetected) 06/16/21 09:29 U Methamphetamines Scrn Not Detected (NotDetected) 06/16/21 09:29 U Benzodiazepines Scrn Not Detected (NotDetected) 06/16/21 09:29 Urine Cocaine Screen Not Detected (NotDetected) 06/16/21 09:29 U Marijuana (THC) Screen Not Detected (NotDetected) 06/16/21 09:29 Coronavirus (PCR) Not Detected (Not Detectd) 06/16/21 12:30 Allergies Allergy/AdvReac Type Severity Reaction Status Date / Time No Known Allergies Allergy Verified 06/16/21 11:24 Patient Condition at Discharge: Stable Plan - Discharge Summary Discharge Rx Participant: No New Discharge Prescriptions: New Nicotine 14Mg/24Hr Patch [Habitrol] 1 patch TRANSDERM DAILY 30 Days patch risperiDONE [RisperDAL] 1 mg PO BID 30 Days tab Tobra-Dexamet 0.3-0.1% Eye Haylie [Tobradex Ophth Susp] 2 drops BOTH EYES Q4HR 30 Days ml NIFEdipine XL [Procardia XL] 30 mg PO DAILY 30 Days #30 tablet DULoxetine HCL [Cymbalta] 30 mg PO BID 30 Days Continue Ubidecarenone [Co Q-10] 200 mg PO DAILY Multivitamins, Thera [Multivitamin (formulary)] 1 tab PO DAILY Ascorbic Acid [Vitamin C with Rachel Hips] 500 mg PO DAILY Discontinued [place]-3 Fatty Acids/Fish Oil [Fish Oil 1,000 mg Softgel] 1 cap PO DAILY Discharge Medication List Ascorbic Acid [Vitamin C with Rachel Hips] 500 mg PO DAILY 10/22/20 [History] Multivitamins, Thera [Multivitamin (formulary)] 1 tab PO DAILY 10/22/20 [History] Ubidecarenone [Co Q-10] 200 mg PO DAILY 10/22/20 [History] DULoxetine HCL [Cymbalta] 30 mg PO BID 30 Days 06/20/21 [Rx] NIFEdipine XL [Procardia XL] 30 mg PO DAILY 30 Days #30 tablet 06/20/21 [Rx] Nicotine 14Mg/24Hr Patch [Habitrol] 1 patch TRANSDERM DAILY 30 Days patch 06/20/21 [Rx] Tobra-Dexamet 0.3-0.1% Eye Haylie [Tobradex Ophth Susp] 2 drops BOTH EYES Q4HR 30 Days ml 06/20/21 [Rx] risperiDONE [RisperDAL] 1 mg PO BID 30 Days tab 06/20/21 [Rx] Follow up Appointment(s)/Referral(s): [facility] [Outside] - 06/27/21 11:00 am (with Nadeen) [facility] [NON-STAFF] - 1 Week Patient Instructions/Handouts: How to Stop Smoking (DC), Depression (DC), Schizophrenia (DC) Activity/Diet/Wound Care/Special Instructions: Activity and diet as tolerated. Avoid the use of street drugs and alcohol. Take all medications as prescribed. When you are in need of refills on your medications please contact your medical provider and/or outpatient psychiatrist to have this done. Please go to scheduled outpatient appointment for aftercare treatment. If symptoms return or become worse, call the crisis line at and/or go to the nearest emergency room for evaluation Discharge Disposition: HOME SELF-CARE
== END 2021-06-20 12:40 | disposition home or self-care (01) | DRG 885 ==
LOC: EC 08:20 → 3MHU 15:26
PROVIDERS: ADMIT Psychiatry & Neurology Psychiatry; ATTEND Psychiatry & Neurology Psychiatry
DX: F20.0 Paranoid schizophrenia (principal); R45.851 Suicidal ideations; E78.5 Hyperlipidemia, unspecified; Z20.822 Contact with and (suspected) exposure to COVID-19; F17.210 Nicotine dependence, cigarettes, uncomplicated; F32.A Depression, unspecified; I10 Essential (primary) hypertension; K08.89 Other specified disorders of teeth and supporting structures; Z59.00 Homelessness unspecified; Z79.899 Other long term (current) drug therapy
CPT/HCPCS: 80053; 80061; 80306; 82075; 83036; 84443; 85025; 87635; 99285

== ENCOUNTER 2024-02-24 18:19 | Emergency (ER) | payer MEDICARE, OTHER ==
[2024-02-24 18:48] VITALS: BP 203/117; PULSE 66; RESP 16; TEMP 98.4
--- NOTE | 2024-02-24 19:31 | ED ---
General Adult HPI - General Chief complaint: Recheck/Abnormal Lab/Rx Stated complaint: tooth pain Time Seen by Provider: 02/24/24 19:31 Source: patient Mode of arrival: ambulatory Limitations: no limitations - History of Present Illness Initial comments: 73-year-old male presenting with chief complaint of pain. Patient is having pain in the bilateral feet, his sides, and his teeth. He states this has been ongoing for "quite a while" but he did not want to tell anyone. He states that he had multiple teeth removed but is still having with his "dental" pain. He believes that the dentist put something in his teeth that is causing this pain. He was seen here previously with the same complaint, he was seen by psychiatry and spent some days on the inpatient floor, he improved and then when discharged was mentioned patient started to complain of this pain again and was demanding that they speak with his dentist, they informed him that that was not part of the care that they provide and the patient was discharged. Patient was homeless at that time and is also currently homeless. He denies any injury or trauma. He denies chest pain or difficulty breathing. No difficulty swallowing. - Related Data Home Medications Medication Instructions Recorded Confirmed Ascorbic Acid [Vitamin C with Rachel 500 mg PO DAILY 10/22/20 06/16/21 Hips] Multivitamins, Thera [Multivitamin 1 tab PO DAILY 10/22/20 06/16/21 (formulary)] Ubidecarenone [Co Q-10] 200 mg PO DAILY 10/22/20 06/16/21 Previous Rx's Medication Instructions Recorded DULoxetine HCL [Cymbalta] 30 mg PO BID 30 Days 06/20/21 NIFEdipine XL [Procardia XL] 30 mg PO DAILY 30 Days #30 tablet 06/20/21 Nicotine 14Mg/24Hr Patch [Habitrol] 1 patch TRANSDERM DAILY 30 Days 06/20/21 patch Tobra-Dexamet 0.3-0.1% Eye Haylie 2 drops BOTH EYES Q4HR 30 Days ml 06/20/21 [Tobradex Ophth Susp] risperiDONE [RisperDAL] 1 mg PO BID 30 Days tab 06/20/21 Allergies Allergy/AdvReac Type Severity Reaction Status Date / Time No Known Allergies Allergy Verified 02/24/24 18:45 Review of Systems ROS Statement: Those systems with pertinent positive or pertinent negative responses have been documented in the HPI. ROS Other: All systems not noted in ROS Statement are negative. Past Medical History Past Medical History: Hyperlipidemia, Hypertension History of Any Multi-Drug Resistant Organisms: None Reported Past Surgical History: No Surgical Hx Reported Past Anesthesia/Blood Transfusion Reactions: No Reported Reaction Past Psychological History: Depression Smoking Status: Current every day smoker Past Alcohol Use History: Occasional Past Drug Use History: None Reported - Past Family History family Family Medical History: Unable to Obtain General Exam - General Exam Comments Initial Comments: Visual Physical Exam Vital signs reviewed General: Well-appearing, nontoxic, no acute distress. Head: Normocephalic, atraumatic Eyes: PERRLA, EOMI ENT: Airway patent Chest: Nonlabored breathing Skin: No visual rash, normal skin tone Neuro: Alert and oriented 3 Musculoskeletal: No gross abnormalities Limitations: no limitations General appearance: alert, in no apparent distress Head exam: Present: atraumatic, normocephalic, normal inspection Eye exam: Present: normal appearance, EOMI ENT exam: Present: normal exam, normal oropharynx, mucous membranes moist Neck exam: Present: normal inspection. Absent: meningismus Respiratory exam: Absent: respiratory distress Cardiovascular Exam: Present: regular rate Extremities exam: Present: normal inspection, full ROM Neurological exam: Present: alert, oriented X3 Psychiatric exam: Present: normal affect, normal mood Skin exam: Present: warm, dry Course Vital Signs 02/24/24 18:45 Temperature 98.4 F Pulse Rate 66 Respiratory 16 Rate Blood Pressure 203/117 O2 Sat by Pulse 100 Oximetry Medical Decision Making - Medical Decision Making I performed the quick note portion of this visit, electronically signed Ish Alvarez PA-C Was pt. sent in by a medical professional or institution ([facility], MIDDLE SCHOOL ASSISTANT PRINCIPAL, urgent care, hospital, or alf...) When possible be specific @ -[No] Did you speak to anyone other than the patient for history (EMS, parent, family, police, friend...)? What history was obtained from this source @ -[No] Did you review nursing and triage notes (agree or disagree)? Why? @ -[I reviewed and agree with nursing and triage notes] Were old charts reviewed (outside hosp., previous admission, EMS record, old EKG, old radiological studies, urgent care reports/EKG's, alf records)? Report findings @ -[No old charts were reviewed] Differential Diagnosis (chest pain, altered mental status, abdominal pain women, abdominal pain men, vaginal bleeding, weakness, fever, dyspnea, syncope, headache, dizziness, GI bleed, back pain, seizure, CVA, palpatations, mental health, musculoskeletal)? @ -Differential includes toothache, dental abscess, Jimbo's angina, chronic pain, this is not an all-inclusive list EKG interpreted by me (3pts min.). @ -[As above] X-rays interpreted by me (1pt min.). @ -[None done] CT interpreted by me (1pt min.). @ -[None done] U/S interpreted by me (1pt. min.). @ -[None done] What testing was considered but not performed or refused? (CT, X-rays, U/S, labs)? Why? @ -[None] What meds were considered but not given or refused? Why? @ -[None] Did you discuss the management of the patient with other professionals (professionals i.e. , PA, MIDDLE SCHOOL ASSISTANT PRINCIPAL, lab, RT, psych nurse, social sciences department chair, information security architect, teacher, risk control officer, pillowcase cutter)? Give summary @ -[No] Was smoking cessation discussed for >3mins.? @ -[No] Was critical care preformed (if so, how long)? @ -[No] Were there social determinants of health that impacted care today? How? (Homelessness, low income, unemployed, alcoholism, drug addiction, transpor tation, low edu. Level, literacy, decrease access to med. care, senior living, rehab)? @ -[No] Was there de-escalation of care discussed even if they declined (Discuss DNR or withdrawal of care, Hospice)? DNR status @ -[No] What co-morbidities impacted this encounter? (DM, HTN, Smoking, COPD, CAD, Cancer, CVA, ARF, Chemo, Hep., AIDS, mental health diagnosis, sleep apnea, morbid obesity)? @ -[None] Was patient admitted / discharged? Hospital course, mention meds given and route, prescriptions, significant lab abnormalities, going to OR and other pertinent info. @ -73-year-old male presenting with multiple complaints, the main of which seems to be dental pain. He is also complaining of pain in his bilateral sides and bilateral feet. States that all of this pain has been ongoing for a number of years. Denies any new injury or trauma. No fever or swelling. Patient is hypertensive. Patient states that he is trying to figure out why he is having this dental pain and he believes that his dentist put something in his mouth. I explained to the patient that we are not a dental clinic and are able to help him to some degree but not entirely when it comes to dental issues. Medications are entered for the patient's blood pressure. The patient elopes prior to being given medication. Undiagnosed new problem with uncertain prognosis? @ -[No] Drug Therapy requiring intensive monitoring for toxicity (Heparin, Nitro, Insulin, Cardizem)? @ -[No] Were any procedures done? @ -[No] Diagnosis/symptom? @ -Dental pain, hypertension Acute, or Chronic, or Acute on Chronic? @ -Acute Uncomplicated (without systemic symptoms) or Complicated (systemic symptoms)? @ -Uncomplicated Side effects of treatment? @ -[No] Exacerbation, Progression, or Severe Exacerbation? @ -[No] Disposition Clinical Impression: Pain, dental, Hypertension Disposition: LEFT AGAINST MEDICAL ADVICE Condition: Undetermined Referrals: None,Stated [Primary Care Provider] - 1-2 days
[2024-02-24] MEDS ORDERED: cloNIDine HCL 0.1 MG TAB PO STA (19:49)
== END 2024-02-24 20:13 | disposition left against medical advice (07) ==
LOC: EC 18:19
CPT/HCPCS: 99282